=== PATIENT | female | born 1955 | race Caucasian/White ===

== ENCOUNTER 2020-04-20 17:11 | Observation (INO) | payer MEDICARE ==
--- NOTE | 2020-04-20 17:16 | ERPHSYRPT ---
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 In addition, she has had a fever as high as 102 F. It is been intermittent since Tuesday prior to this evaluation. Patient has no known exposure to COVID-19 positive individuals. She had a negative COVID-19 test on the prior to this evaluation. Her symptoms have not improved. She has not taken Tylenol in the last 2 days. She did take Aleve at 3:00 prior to arrival this afternoon. She denies chest pain. (FAHAD NGUYEN) Allergies/Adverse Reactions: Penicillins Allergy (Verified 04/20/20 17:41) Home Medications: Amitriptyline HCl 1 ea DAILY 04/20/20 [History] Atenolol/Chlorthalidone [Atenolol-Chlorthalidone 50-25] 1 ea DAILY 04/20/20 [History] Atorvastatin Calcium 1 ea DAILY 04/20/20 [History] Celecoxib [Celebrex] 1 ea DAILY 04/20/20 [History] Fluoxetine HCl 1 ea DAILY 04/20/20 [History] Metformin HCl 500 mg [Glucophage 500 MG] 1 ea DAILY 04/20/20 [History] Tramadol HCl 50 mg [Ultram 50 mg] 1 ea QID 04/20/20 [History] Travel Risk - International Travel Have you traveled outside of the country in past 3 weeks: No - Coronavirus Screening Are you exhibiting any of the following symptoms?: No Close contact with a COVID-19 positive Pt in past 14-21 Days: No <FAHAD NGUYEN - Last Filed: 04/20/20 19:09> - Review of Systems Constitutional: Fever, Chills, Weakness Eyes: No Symptoms Ears, Nose, & Throat: Throat Pain (Mild sore throat) Respiratory: No Symptoms Cardiac: No Symptoms Abdominal/Gastrointestinal: Nausea, Vomiting, No Abdominal Pain, No Diarrhea Genitourinary Symptoms: No Symptoms Musculoskeletal: No Symptoms Skin: No Symptoms Neurological: No Symptoms Psychological: No Symptoms Endocrine: No Symptoms Hematologic/Lymphatic: No Symptoms Immunological/Allergic: No Symptoms All Other Systems: Reviewed and Negative <FAHAD NGUYEN - Last Filed: 04/20/20 19:09> - Past Medical History Pertinent Past Medical History: Yes Neurological History: No Pertinent History ENT History: No Pertinent History Cardiac History: No Pertinent History Respiratory History: No Pertinent History Endocrine Medical History: Diabetes Type II Musculoskeletal History: No Pertinent History GI Medical History: No Pertinent History History: No Pertinent History Psycho-Social History: No Pertinent History Female Reproductive Disorders: No Pertinent History - Past Surgical History Past Surgical History: Yes <FAHAD NGUYEN - Last Filed: 04/20/20 19:09> - Physical Exam General Appearance: mild distress, alert, anxiety Eye Exam: PERRL/EOMI, eyes nml inspection ENT Exam: normal ENT inspection, no apparent trauma, hearing grossly normal, pharyngeal erythema (Mild) Neck Exam: normal inspection, non-tender, supple, full range of motion, trachea midline Respiratory Exam: normal breath sounds, lungs clear, no respiratory distress, no accessory muscle use, No chest non-tender, No decreased breath sounds, No respiratory distress Cardiovascular/Chest Exam: normal heart sounds, regular rate/rhythm Gastrointestinal/Abdominal Exam: soft, non tender, no distention, no mass, no guarding, no ecchymosis, no organomegaly, no pulsatile mass, normal bowel sounds, No rebound, No tenderness Pelvic Exam: not done Rectal Exam: not done Extremity Exam: non-tender, normal range of motion, normal inspection Neurologic Exam: alert, oriented x 3, cooperative, 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 as tested, normal mood/affect, nml cerebellar function, nml station & gait, sensation nml Skin Exam: normal color, warm, dry Lymphatic: No adenopathy SpO2 Interpretation: normal O2 Delivery: Room Air <FAHAD NGUYEN - Last Filed: 04/20/20 19:09> - Nursing Vital Signs Nursing Vital Signs: Initial Vital Signs Temperature 98.2 F 04/20/20 17:31 Pulse Rate 98 H 04/20/20 17:31 Respiratory Rate 16 04/20/20 17:31 Blood Pressure 124/72 04/20/20 17:31 O2 Sat by Pulse Oximetry 98 04/20/20 17:31 Pain Scale Pain Intensity 3 - Course Nursing assessment & vital signs reviewed: Yes <FAHAD NGUYEN - Last Filed: 04/20/20 19:09> Ordered Tests: Active Orders 24 hr Category Date Time Status Bedrest with BRP/BSC ROUTINE Activity 04/20/20 22:40 Active Up With Assistance ROUTINE Activity 04/20/20 22:40 Active Biological Photographer STAT Care 04/20/20 17:38 Completed Code Status Order ROUTINE Care 04/20/20 22:40 Active Fall Protocol ROUTINE Care 04/20/20 22:40 Active IV Care Q6H Care 04/20/20 22:40 Active IV Insertion STAT Care 04/20/20 17:38 Completed POCT Glucose Check ACHS Care 04/20/20 22:[address] in Observation ROUTINE Care 04/20/20 22:40 Active Pulse Oximetry (ED) STAT Care 04/20/20 17:38 Completed Kentrell Alexander ROUTINE Care 04/20/20 22:40 Active Weight,Daily 0600 Care 04/20/20 22:40 Active Consistent Carbohydrate Diet 1800 Calorie Diet 04/20/20 Breakfast Active ABDOMEN AND PELVIS W/0 CONTRAS [CT] Stat Exams 04/20/20 19:25 Taken CHEST 1 VIEW (PORTABLE) Stat Exams 04/20/20 18:51 Taken BLOOD CULTURE Stat Lab 04/20/20 18:09 Received CBC W DIFF AM.LAB Lab 04/21/20 04:00 Ordered CBC W DIFF Stat Lab 04/20/20 18:00 Completed CMP AM.LAB Lab 04/21/20 04:00 Ordered CMP Stat Lab 04/20/20 18:00 Completed CULTURE,URINE Stat Lab 04/20/20 17:49 Received Ellis Screen Stat Lab 04/20/20 18:00 Completed UA W/RFX UR CULTURE Stat Lab 04/20/20 17:49 Completed Transfer Order Routine Transfer 04/20/20 Completed Medication Summary Generic Name Dose Route Start Last Admin Trade Name Lion PRN Reason Stop Dose Admin Acetaminophen 650 mg 04/20/20 22:40 Tylenol 325 Mg PO 05/20/20 22:39 Q4H PRN PRN PAIN AND/OR FEVER Famotidine 20 mg 04/20/20 22:40 Pepcid 20 Mg Vial IV 05/20/20 22:39 Q12HT PADMINI Levofloxacin/Dextrose 500 mg in 100 mls @ 100 mls/hr 04/21/20 10:00 Levofloxacin 500mg/100ml D5w IV 05/21/20 09:59 Q24H10 PADMINI Insulin Human Lispro 0 unit 04/20/20 22:40 Humalog SQ 05/20/20 22:39 UD PRN HYPERGLYCEMIA Morphine Sulfate 2 mg 04/20/20 22:40 Morphine Sulfate 2 Mg Inj IV 04/25/20 22:39 Q4H PRN PRN PAIN Ondansetron HCl 4 mg 04/20/20 22:40 Zofran 4 Mg/2 Ml Vial IV 05/20/20 22:39 Q6H PRN PRN NAUSEA/VOMITING Discontinued Medications Generic Name Dose Route Start Last Admin Trade Name Lion PRN Reason Stop Dose Admin Acetaminophen 650 mg 04/20/20 17:38 04/20/20 18:05 Tylenol 325 Mg PO 04/20/20 17:39 650 mg STAT STA Administration Acetaminophen Confirm 04/20/20 17:59 Tylenol 325 Mg Administered 04/20/20 18:00 Dose 650 mg .ROUTE .STK-MED ONE Sodium Chloride 1,000 mls @ 999 mls/hr 04/20/20 17:38 04/20/20 19:37 Sodium Chloride 0.9% 1000 Ml IV 04/20/20 18:38 Infused .Q1H1M STA Infusion Sodium Chloride Confirm 04/20/20 17:59 Sodium Chloride 0.9% 1000 Ml Administered 04/20/20 18:00 Dose 1,000 mls @ ud .ROUTE .STK-MED ONE Levofloxacin/Dextrose 750 mg in 150 mls @ 100 mls/hr 04/20/20 19:45 04/20/20 21:51 Levofloxacin 750mg/150ml D5w IV 04/20/20 21:14 Infused STAT STA Infusion Levofloxacin/Dextrose Confirm 04/20/20 19:50 Levofloxacin 750mg/150ml D5w Administered 04/20/20 19:51 Dose 750 mg in 150 mls @ ud IV .STK-MED ONE Ketorolac Tromethamine 30 mg 04/20/20 19:56 04/20/20 19:59 Toradol 30 Mg Injection IV 04/20/20 19:57 30 mg STAT ONE Administration Ketorolac Tromethamine Confirm 04/20/20 19:58 Toradol 30 Mg Injection Administered 04/20/20 19:59 Dose 30 mg .ROUTE .STK-MED ONE Ondansetron HCl 4 mg 04/20/20 17:38 04/20/20 18:05 Zofran 4 Mg/2 Ml Vial IV 04/20/20 17:39 4 mg STAT STA Administration Ondansetron HCl Confirm 04/20/20 17:59 Zofran 4 Mg/2 Ml Vial Administered 04/20/20 18:00 Dose 4 mg .ROUTE .STK-MED ONE Potassium Bicarbonate 50 meq 04/20/20 19:52 04/20/20 19:55 K-Lyte 25 Meq PO 04/20/20 19:53 50 meq STAT ONE Administration Potassium Bicarbonate Confirm 04/20/20 19:53 K-Lyte 25 Meq Administered 04/20/20 19:54 Dose 50 meq .ROUTE .STK-MED ONE Lab/Rad Data: Laboratory Result Diagrams 04/20/20 18:00 04/20/20 18:00 Laboratory Results 04/20/20 04/20/20 04/20/20 Range/Units 20:15 18:09 18:09 WBC (4.0-10.5) K/mm3 RBC (4.1-5.4) M/mm3 Hgb (12.0-16.0) gm/dl Hct (35-47) % MCV (78-100) fl MCH (26-32) pg MCHC (32-36) g/dl RDW (11.5-14.0) % Plt Count (150-450) K/mm3 MPV (7.5-11.0) fl Gran % (36.0-66.0) % Eos # (Auto) (0-0.5) Absolute Lymphs (auto) (1.0-4.6) Absolute Monos (auto) (0.0-1.3) Lymphocytes % (24.0-44.0) % Monocytes % (0.0-12.0) % Eosinophils % (0.00-5.0) % Basophils % (0.0-0.4) % Absolute Granulocytes (1.4-6.9) Basophils # (0-0.4) Sodium (137-145) mmol/L Potassium (3.5-5.1) mmol/L Chloride (98-107) mmol/L Carbon Dioxide (22-30) mmol/L Anion Gap (5-15) MEQ/L BUN (7-17) mg/dL Creatinine (0.52-1.04) mg/dL Estimated GFR ML/MIN Glucose (74-106) mg/dL Calcium (8.4-10.2) mg/dL Total Bilirubin (0.2-1.3) mg/dL AST (14-36) U/L ALT (0-35) U/L Alkaline Phosphatase (38-126) U/L Serum Total Protein (6.3-8.2) g/dL Albumin (3.5-5.0) g/dL Urine Color (YELLOW) Urine Appearance (CLEAR) Urine pH (5-6) Ur Specific [place] (1.005-1.025) Urine Protein (Negative) Urine Ketones (NEGATIVE) Urine Blood (0-5) Kevin/ul Urine Nitrite (NEGATIVE) Urine Bilirubin (NEGATIVE) Urine Urobilinogen (0-1) mg/dL Ur Leukocyte Esterase (NEGATIVE) Urine WBC (Auto) (0-5) /HPF Urine RBC (Auto) (0-2) /HPF U Epithel Cells (Auto) (FEW) /HPF Urine Bacteria (Auto) (NEGATIVE) /HPF Unidentified Crystals (NEGATIVE) /HPF Urine Mucus (Auto) (NEGATIVE) /HPF Urine Culture Reflexed (NO) Urine Glucose (NEGATIVE) mg/dL Monoscreen (Negative) Influenza Type A Ag NEGATIVE (NEGATIVE) Influenza Type B Ag NEGATIVE (NEGATIVE) RSV (PCR) NEGATIVE (Negative) SARS-CoV-2 (PCR) NEGATIVE (NEGATIVE) Group A Strep Antibody NOT DETECTED (NEGATIVE) 04/20/20 04/20/20 04/20/20 Range/Units 18:00 18:00 18:00 WBC 9.1 (4.0-10.5) K/mm3 RBC 4.09 L (4.1-5.4) M/mm3 Hgb 12.3 (12.0-16.0) gm/dl Hct 36.6 (35-47) % MCV 89.5 (78-100) fl MCH 30.1 (26-32) pg MCHC 33.6 (32-36) g/dl RDW 13.4 (11.5-14.0) % Plt Count 103 L (150-450) K/mm3 MPV 11.3 H (7.5-11.0) fl Gran % 71.1 H (36.0-66.0) % Eos # (Auto) 0.03 (0-0.5) Absolute Lymphs (auto) 1.23 (1.0-4.6) Absolute Monos (auto) 1.35 H (0.0-1.3) Lymphocytes % 13.6 L (24.0-44.0) % Monocytes % 14.9 H (0.0-12.0) % Eosinophils % 0.3 (0.00-5.0) % Basophils % 0.1 (0.0-0.4) % Absolute Granulocytes 6.43 (1.4-6.9) Basophils # 0.01 (0-0.4) Sodium 135 L (137-145) mmol/L Potassium 3.1 L (3.5-5.1) mmol/L Chloride 99 (98-107) mmol/L Carbon Dioxide 27 (22-30) mmol/L Anion Gap 12.1 (5-15) MEQ/L BUN 25 H (7-17) mg/dL Creatinine 0.64 (0.52-1.04) mg/dL Estimated GFR > 60.0 ML/MIN Glucose 149 H (74-106) mg/dL Calcium 9.3 (8.4-10.2) mg/dL Total Bilirubin 1.10 (0.2-1.3) mg/dL AST 41 H (14-36) U/L ALT 37 H (0-35) U/L Alkaline Phosphatase 265 H (38-126) U/L Serum Total Protein 7.5 (6.3-8.2) g/dL Albumin 4.0 (3.5-5.0) g/dL Urine Color (YELLOW) Urine Appearance (CLEAR) Urine pH (5-6) Ur Specific [place] (1.005-1.025) Urine Protein (Negative) Urine Ketones (NEGATIVE) Urine Blood (0-5) Kevin/ul Urine Nitrite (NEGATIVE) Urine Bilirubin (NEGATIVE) Urine Urobilinogen (0-1) mg/dL Ur Leukocyte Esterase (NEGATIVE) Urine WBC (Auto) (0-5) /HPF Urine RBC (Auto) (0-2) /HPF U Epithel Cells (Auto) (FEW) /HPF Urine Bacteria (Auto) (NEGATIVE) /HPF Unidentified Crystals (NEGATIVE) /HPF Urine Mucus (Auto) (NEGATIVE) /HPF Urine Culture Reflexed (NO) Urine Glucose (NEGATIVE) mg/dL Monoscreen NEGATIVE (Negative) Influenza Type A Ag (NEGATIVE) Influenza Type B Ag (NEGATIVE) RSV (PCR) (Negative) SARS-CoV-2 (PCR) (NEGATIVE) Group A Strep Antibody (NEGATIVE) 04/20/20 Range/Units 17:49 WBC (4.0-10.5) K/mm3 RBC (4.1-5.4) M/mm3 Hgb (12.0-16.0) gm/dl Hct (35-47) % MCV (78-100) fl MCH (26-32) pg MCHC (32-36) g/dl RDW (11.5-14.0) % Plt Count (150-450) K/mm3 MPV (7.5-11.0) fl Gran % (36.0-66.0) % Eos # (Auto) (0-0.5) Absolute Lymphs (auto) (1.0-4.6) Absolute Monos (auto) (0.0-1.3) Lymphocytes % (24.0-44.0) % Monocytes % (0.0-12.0) % Eosinophils % (0.00-5.0) % Basophils % (0.0-0.4) % Absolute Granulocytes (1.4-6.9) Basophils # (0-0.4) Sodium (137-145) mmol/L Potassium (3.5-5.1) mmol/L Chloride (98-107) mmol/L Carbon Dioxide (22-30) mmol/L Anion Gap (5-15) MEQ/L BUN (7-17) mg/dL Creatinine (0.52-1.04) mg/dL Estimated GFR ML/MIN Glucose (74-106) mg/dL Calcium (8.4-10.2) mg/dL Total Bilirubin (0.2-1.3) mg/dL AST (14-36) U/L ALT (0-35) U/L Alkaline Phosphatase (38-126) U/L Serum Total Protein (6.3-8.2) g/dL Albumin (3.5-5.0) g/dL Urine Color YELLOW (YELLOW) Urine Appearance SLIGHTLY CLOUDY (CLEAR) Urine pH 5.0 (5-6) Ur Specific [place] 1.018 (1.005-1.025) Urine Protein 30 (Negative) Urine Ketones NEGATIVE (NEGATIVE) Urine Blood MODERATE (0-5) Kevin/ul Urine Nitrite NEGATIVE (NEGATIVE) Urine Bilirubin NEGATIVE (NEGATIVE) Urine Urobilinogen NEGATIVE (0-1) mg/dL Ur Leukocyte Esterase LARGE (NEGATIVE) Urine WBC (Auto) 26-50 (0-5) /HPF Urine RBC (Auto) 16-25 (0-2) /HPF U Epithel Cells (Auto) RARE (FEW) /HPF Urine Bacteria (Auto) MODERATE (NEGATIVE) /HPF Unidentified Crystals 2-5 (NEGATIVE) /HPF Urine Mucus (Auto) SLIGHT (NEGATIVE) /HPF Urine Culture Reflexed YES (NO) Urine Glucose NEGATIVE (NEGATIVE) mg/dL Monoscreen (Negative) Influenza Type A Ag (NEGATIVE) Influenza Type B Ag (NEGATIVE) RSV (PCR) (Negative) SARS-CoV-2 (PCR) (NEGATIVE) Group A Strep Antibody (NEGATIVE) - Progress Counseled pt/family regarding: lab results, diagnosis, need for follow-up, rad results <FAHAD NGUYEN - Last Filed: 04/20/20 19:09> - Progress Will see patient in: hospital (observation) <ANCELMO DUNLAP - Last Filed: 04/20/20 23:14> - Progress Progress Note: 04/20/20 19:[address] dunlap. i reviewed pt hx, condition, pending labs and xray studies. he accepts care of pt. (FAHAD NGUYEN) 11/01/20 20:12 I resumed care at shift change from Dr. Nguyen with pending CT results. Patient presented with fever chills with some flank pain. She had a COVID-19 testing done 3 days ago which was negative. She has a normal white count, negative CT for any acute pyelonephritis or any other acute findings but urinalysis is consistent with remarkable UTI which could be the reason for her fever and she is developing pyelonephritis although CT is not showing it at present. She is started on Levaquin. I would obtain COVID-19 testing again here in the ER. I have discussed with Dr. Hector and patient is being admitted to regular floor if COVID-19 testing is negative. Plan discussed with patient who understand and agrees with it. (ANCELMO DUNLAP) - Departure Departure Disposition: Observation Critical Care Time: No <FAHAD NGUYEN - Last Filed: 04/20/20 19:09> - Departure Departure Disposition: Observation <ANCELMO DUNLAP - Last Filed: 04/20/20 23:14> - Departure Clinical Impression: Weakness, Acute UTI, Hypokalemia Fever Qualifiers: Fever type: unspecified Qualified Code(s): R50.9 - Fever, unspecified Condition: Stable
[2020-04-20] MEDS ORDERED: TYLENOL 325 MG PO STA (17:38)
[2020-04-20] MEDS ORDERED: Sodium Chloride 0.9% 1000 ML 1,000 ML IV STA (17:38)
[2020-04-20] MEDS ORDERED: Zofran 4 MG/2 ML VIAL IV STA (17:38)
[2020-04-20] MEDS ORDERED: TYLENOL 325 MG ONE (17:59)
[2020-04-20] MEDS ORDERED: Zofran 4 MG/2 ML VIAL ONE (17:59)
[2020-04-20] MEDS ORDERED: Sodium Chloride 0.9% 1000 ML 1,000 ML ONE (17:59)
[2020-04-20 18:14] LABS: Absolute Neutrophil Ct (ANC) 6.43 (1.4-6.9); BASOPHIL % 0.1 % (0.0-0.4); Basophil (Absolute #) 0.01 (0-0.4); Eosinophil % 0.3 % (0.00-5.0); Eosinophil (Absolute #) 0.03 (0-0.5); Hematocrit 36.6 % (35-47); Hemoglobin 12.3 gm/dl (12.0-16.0); Lymphocyte (Absolute #) 1.23 (1.0-4.6); Lymphocytes % 13.6 % (24.0-44.0); Mean Cell Volume 89.5 fl (78-100); Mean Corpuscular Hemoglobin 30.1 pg (26-32); Mean Corpuscular Hgb Concent. 33.6 g/dl (32-36); Mean Platelet Volume 11.3 fl (7.5-11.0); Monocyte (Absolute #) 1.35 (0.0-1.3); Monocytes % 14.9 % (0.0-12.0); Neutrophil % 71.1 % (36.0-66.0); Platelet Count 103 K/mm3 (150-450); Red Blood Count 4.09 M/mm3 (4.1-5.4); Red Cell Distribution Width 13.4 % (11.5-14.0); White Blood Count 9.1 K/mm3 (4.0-10.5)
[2020-04-20 18:32] LABS: Appearance SLIGHTLY CLOUDY (CLEAR); Bacteria MODERATE /HPF (NEGATIVE); Bilirubin NEGATIVE (NEGATIVE); Blood MODERATE Ery/ul (0-5); Epithelial Cells RARE /HPF (FEW); Glucose NEGATIVE (NEGATIVE); Ketones NEGATIVE (NEGATIVE); Leukocyte Esterase LARGE (NEGATIVE); Mucus SLIGHT /HPF (NEGATIVE); Nitrite NEGATIVE (NEGATIVE); Protein,Urine Dip 30 (Negative); Specific Gravity 1.018 (1.005-1.025); Urobilinogen NEGATIVE mg/dL (0-1); WBC 26-50 /HPF (0-5)
[2020-04-20 18:32] LABS: ALKALINE PHOSPHATASE 265 U/L (38-126); ANION GAP 12.1 MEQ/L (5-15); BLOOD UREA NITROGEN 25 mg/dL (7-17); CHLORIDE 99 mmol/L (98-107); Calcium 9.3 mg/dL (8.4-10.2); Carbon Dioxide 27 mmol/L (22-30); Creatinine 1 0.64 mg/dL (0.52-1.04); EST GLOMERULAR FILTRATION RATE > 60.0 ML/MIN; Glucose 149 mg/dL (74-106); Potassium 3.1 mmol/L (3.5-5.1); SGOT/AST 41 U/L (14-36); SGPT/ALT 37 U/L (0-35); SODIUM 135 mmol/L (137-145); Total Protein 7.5 g/dL (6.3-8.2)
[2020-04-20 18:47] LABS: INFLUENZA A NEGATIVE (NEGATIVE); INFLUENZA B NEGATIVE (NEGATIVE); RESPIRATORY SYNCTIAL VIRUS NEGATIVE (Negative)
[2020-04-20] MEDS ORDERED: LEVOFLOXACIN 750MG/150ML D5W 750 MG/150 ML BAG IV STA (19:45)
[2020-04-20] MEDS ORDERED: LEVOFLOXACIN 750MG/150ML D5W 750 MG/150 ML BAG IV ONE (19:50)
[2020-04-20] MEDS ORDERED: K-LYTE 25 MEQ PO ONE (19:52)
[2020-04-20] MEDS ORDERED: K-LYTE 25 MEQ ONE (19:53)
[2020-04-20] MEDS ORDERED: TORAdol 30 mg Injection IV ONE (19:56)
[2020-04-20] MEDS ORDERED: TORAdol 30 mg Injection ONE (19:58)
[2020-04-20] MEDS ORDERED: Zofran 4 MG/2 ML VIAL IV PRN (22:40)
[2020-04-20] MEDS ORDERED: HUMALOG SQ PRN (22:40)
[2020-04-20] MEDS ORDERED: FLUZONE HIGH-DOSE QUAD 2020-21 IM ONE (23:00)
[2020-04-21] MEDS: MORPHINE SULFATE 2 MG INJ IV PRN ×2 (00:13→16:26)
[2020-04-21] MEDS: Pepcid 20 MG VIAL IV SCH ×3 (00:24→21:10)
[2020-04-21] MEDS: TYLENOL 325 MG PO PRN ×2 (03:21→20:03)
[2020-04-21 05:05] LABS: Absolute Neutrophil Ct (ANC) 4.51 (1.4-6.9); BASOPHIL % 0.1 % (0.0-0.4); Basophil (Absolute #) 0.01 (0-0.4); Eosinophil % 0.6 % (0.00-5.0); Eosinophil (Absolute #) 0.04 (0-0.5); Hemoglobin 10.8 gm/dl (12.0-16.0); Lymphocyte (Absolute #) 1.39 (1.0-4.6); Lymphocytes % 19.7 % (24.0-44.0); Mean Cell Volume 91.2 fl (78-100); Mean Corpuscular Hemoglobin 29.8 pg (26-32); Mean Corpuscular Hgb Concent. 32.7 g/dl (32-36); Mean Platelet Volume 11.4 fl (7.5-11.0); Monocyte (Absolute #) 1.12 (0.0-1.3); Monocytes % 15.8 % (0.0-12.0); Neutrophil % 63.8 % (36.0-66.0); Platelet Count 94 K/mm3 (150-450); Red Blood Count 3.62 M/mm3 (4.1-5.4); Red Cell Distribution Width 13.6 % (11.5-14.0); White Blood Count 7.1 K/mm3 (4.0-10.5)
[2020-04-21 05:26] LABS: ALBUMIN 3.5 g/dL (3.5-5.0); ALKALINE PHOSPHATASE 202 U/L (38-126); ANION GAP 8.1 MEQ/L (5-15); BLOOD UREA NITROGEN 24 mg/dL (7-17); CHLORIDE 100 mmol/L (98-107); Calcium 8.6 mg/dL (8.4-10.2); Carbon Dioxide 30 mmol/L (22-30); Creatinine 1 0.71 mg/dL (0.52-1.04); EST GLOMERULAR FILTRATION RATE > 60.0 ML/MIN; Glucose 124 mg/dL (74-106); Potassium 3.6 mmol/L (3.5-5.1); SGOT/AST 34 U/L (14-36); SGPT/ALT 32 U/L (0-35); SODIUM 135 mmol/L (137-145); Total Protein 6.6 g/dL (6.3-8.2)
[2020-04-21 05:59] LABS: Slide Review 1 YES
--- NOTE | 2020-04-21 08:52 | XRAY ---
Indication: Abdomen pain and hematuria. Multiple contiguous axial images obtained through the abdomen and pelvis without contrast as ordered. Comparison: None Lung bases are clear of infiltrate and effusion. Heart is not enlarged. Noncontrasted stomach and bowel loops appear nonobstructed. Normal appendix. Previous cholecystectomy and hysterectomy. Fatty hepatomegaly measuring 24.5 cm and splenomegaly measuring 18.5 cm. No free fluid/air. Remaining pancreas, adrenal glands, kidneys, ureters, and bladder are unremarkable for noncontrast exam. Mild scattered aortoiliac calcifications without AAA. Osseous structures intact with mild degenerative spondylosis throughout the spine including 4-5 mm L4 spondylolisthesis. Impression: 1. Fatty hepatomegaly, splenomegaly, and chronic bony findings. 2. Remaining CT abdomen/pelvis without contrast exam is negative. Comment: Preliminary interpretation was made by [facility]. No critical discrepancy.
--- NOTE | 2020-04-21 08:54 | XRAY ---
Indication: Fever, cough, and sore throat. Comparison: None Portable chest demonstrates normal heart and lungs. Bony thorax intact with minimal degenerative changes.
[2020-04-21] MEDS: SODIUM CHLORIDE 0.45% W/ 20 mEq KCL 1,000 ML IV SCH ×2 (09:24→23:44)
[2020-04-21] MEDS ORDERED: Glucophage 500 MG PO SCH ×2 (10:00→22:00)
[2020-04-21] MEDS ORDERED: NON-FORMULARY ITEM PO SCH (10:00)
[2020-04-21] MEDS ORDERED: celeBREX 100 MG PO SCH (10:00)
[2020-04-21] MEDS ORDERED: CHLORTHALIDONE PO SCH (10:00)
[2020-04-21] MEDS ORDERED: ATENOLOL PO SCH (10:00)
[2020-04-21] MEDS ORDERED: PROZAC 10 MG PO SCH (10:00)
[2020-04-21] MEDS ORDERED: ATORVASTATIN CALCIUM PO SCH (10:00)
[2020-04-21] MEDS ORDERED: ELAVIL 10 MG PO SCH ×2 (10:00→22:00)
[2020-04-21] MEDS ORDERED: FLUZONE HIGH-DOSE QUAD 2020-21 IM ONE (10:00)
[2020-04-21] MEDS ORDERED: CELECOXIB PO SCH (10:00)
[2020-04-21] MEDS: ULTRAM 50 MG PO SCH ×2 (10:24→12:08)
[2020-04-21] MEDS ORDERED: ULTRAM 50 MG PO PRN (15:21)
[2020-04-21] MEDS ORDERED: ZOCOR 20MG PO SCH (22:00)
[2020-04-21] MEDS ORDERED: Levofloxacin 500MG/100ML D5W 500 MG/100 ML BAG IV SCH (22:00)
[2020-04-22] MEDS: MORPHINE SULFATE 2 MG INJ IV PRN (04:06)
[2020-04-22 04:20] VITALS: PULSE 71
[2020-04-22 04:49] LABS: BASOPHIL % 0.4 % (0.0-0.4); Basophil (Absolute #) 0.02 (0-0.4); Eosinophil % 1.8 % (0.00-5.0); Hematocrit 32.8 % (35-47); Hemoglobin 10.6 gm/dl (12.0-16.0); Lymphocyte (Absolute #) 1.67 (1.0-4.6); Lymphocytes % 29.3 % (24.0-44.0); Mean Cell Volume 92.1 fl (78-100); Mean Corpuscular Hemoglobin 29.8 pg (26-32); Mean Corpuscular Hgb Concent. 32.3 g/dl (32-36); Monocyte (Absolute #) 0.71 (0.0-1.3); Monocytes % 12.5 % (0.0-12.0); Platelet Count 101 K/mm3 (150-450); Red Blood Count 3.56 M/mm3 (4.1-5.4); Red Cell Distribution Width 13.5 % (11.5-14.0); White Blood Count 5.7 K/mm3 (4.0-10.5)
[2020-04-22 05:08] LABS: ALBUMIN 3.3 g/dL (3.5-5.0); ALKALINE PHOSPHATASE 191 U/L (38-126); ANION GAP 8.3 MEQ/L (5-15); BLOOD UREA NITROGEN 18 mg/dL (7-17); CHLORIDE 103 mmol/L (98-107); Calcium 8.4 mg/dL (8.4-10.2); Carbon Dioxide 28 mmol/L (22-30); Creatinine 1 0.68 mg/dL (0.52-1.04); EST GLOMERULAR FILTRATION RATE > 60.0 ML/MIN; Glucose 104 mg/dL (74-106); Potassium 3.7 mmol/L (3.5-5.1); SGOT/AST 30 U/L (14-36); SGPT/ALT 27 U/L (0-35); SODIUM 135 mmol/L (137-145); Total Protein 6.5 g/dL (6.3-8.2)
[2020-04-22 07:24] VITALS: BP 106/51; O2SAT 97
--- NOTE | 2020-04-22 07:59 | HP ---
CHIEF COMPLAINT: Fever, chills, sweats, rigors. HISTORY OF PRESENT ILLNESS: The patient is a 64 year old white female who reported she had come home from work the other day feeling bad thinking it was an attack of fibromyalgia. She went to bed and woke up having shaking chills. She noted fever two different times one as high as 102F. She presented to the emergency room for further evaluation and management. Her regular doctor is in [place] but she did not wish to go that way due to her concerns of COVID and bad experiences with family members and friends have had in those facilities. The patient also reports a fairly recent colonoscopy after which it sounds like polyps were removed and she apparently had some bleeding thereafter this was about three weeks ago and she has an appointment to see her GI specialist for some possible cirrhosis issues actually tomorrow. PAST MEDICAL/SURGICAL HISTORY: Fibromyalgia, diabetes mellitus type II, hyperlipidemia. HOME MEDICATIONS: Includes amitriptyline, Atenolol/Chlorthalidone 50/25 daily, Atorvastatin daily, Celebrex daily, fluoxetine daily, Metformin 500 mg twice a day, tramadol four times a day PRN pain. ALLERGIES: PENICILLINS. PHYSICAL EXAMINATION: The patient's vital signs on admission showed temperature 98.2F, pulse 98, respiratory rate 16 and blood pressure 124/72. O2 saturation 98%. HEENT: Normocephalic, atraumatic. Pupils equal round reactive to light. Extraocular movements intact. Oropharynx is pink and moist. NECK: Supple without lymphadenopathy, thyromegaly or JVD. CHEST: Clear to auscultation. HEART: Regular rate and rhythm. ABDOMEN: Soft but somewhat tender in the right side particularly to percussion. EXTREMITIES: Without cyanosis, clubbing or edema. NEUROLOGIC: The patient is alert and oriented x3. No focal deficits were noted. LAB DATA AND TESTS: Laboratory studies from the emergency room showed a white count of 9,100, hemoglobin 12.3, PLT count somewhat low at 103,000. [place] screen was negative. Laboratory tests and influenza evaluations were negative. UA showed specific gravity 1.018 and 25-50 white blood cells per high power field and 16-25 red blood cells. Her sugar was 149, BUN 25, creatinine 0.64, potassium slightly low at 3.1. Liver enzymes mildly elevated with an AST 41, ALT 37. Alkaline phosphatase elevated at 265. Group A Strep was negative. RSV was negative. The urine culture is already growing gram-negative, ID and sensitivity currently pending. CT scan revealed no evidence of pyelonephritis and essentially otherwise negative preliminarily. ASSESSMENT: A patient with probable urinary tract infection, possible pyelonephritis. Cultures were obtained from urine and blood. She has been started on IV Levaquin. We will flush her kidneys with IV fluids of half normal saline plus 20 mEq potassium. We will continue the patient's home medications. She does have a follow up otherwise at a GI specialist office as early as tomorrow. We will have her reschedule this to make sure that she will be make the appointment.
[2020-04-22] MEDS ORDERED: FLUZONE HIGH-DOSE QUAD 2020-21 IM ONE (10:00)
[2020-04-22] MEDS ORDERED: TENORMIN 50 MG PO SCH (10:00)
--- NOTE | 2020-04-23 10:04 | DS ---
DISCHARGE DIAGNOSES: 1) ESCHERICHIA COLI URINARY TRACT INFECTION. 2) PROBABLE PYELONEPHRITIS. HOSPITAL COURSE: The patient is 64 year old white female who presented to the emergency room after having rigors and fever up to 102F the night prior to admission. The patient was seen in the emergency room. CT scans revealed fatty hepatomegaly, splenomegaly and chronic bone findings but CT scan of the abdomen and pelvis was otherwise essentially unremarkable. Specifically, there was no note of pyelonephritis there although on physical examination had CVA tenderness particularly on the right side but was pretty much tender all over. The patient after admission was given IV fluids and IV Levaquin. The urine culture did come back positive for Escherichia coli and was sensitive to all antibiotics tested but the patient really did receive IV Levaquin so we felt that she could be on oral Levaquin at home. The patient was feeling better and wished to go home although she was still having some right flank pain. We suggested that she stay another day but was really insistent on returning home. The patient was therefore discharged home on Levaquin 500 mg p.o. for additional seven days. She was instructed to follow up with her primary care provider (PCP) within the next week. The patient verbalized her understanding and was also instructed to call if she had any need for us in the future particularly if things should get worse instead of better for her then she could see her PCP.
== END 2020-04-22 08:25 | disposition home or self-care (01) ==
LOC: ED 17:11 → MED SURG 22:34
PROVIDERS: ADMIT Family Medicine; ATTEND Family Medicine
DX: N39.0 Urinary tract infection, site not specified (principal); B96.20 Unspecified Escherichia coli [E. coli] as the cause of diseases classified elsewhere; R16.2 Hepatomegaly with splenomegaly, not elsewhere classified; E11.9 Type 2 diabetes mellitus without complications; E78.5 Hyperlipidemia, unspecified; M79.7 Fibromyalgia; Z79.899 Other long term (current) drug therapy
CPT/HCPCS: 36000; 36415; 71045; 74176; 80053; 81001; 82947; 83036; 85025; 86308; 87040; 87077; 87086; 87186; 87631; 87651; 93041; 94760; 96360; 96361; 96365; 96374; 96375; 99285; G0008; G0378; U0003; 90662; J1885; J1956; J2270; J2405; A9270-GY

== ENCOUNTER 2022-01-25 18:33 | Inpatient (IN) | payer MEDICARE ==
[2022-01-25] MEDS ORDERED: Sodium Chloride 0.9% 1000 ML 1,000 ML IV STA ×2 (20:31→22:57)
[2022-01-25] MEDS ORDERED: Zofran 4 MG/2 ML VIAL IV ONE (20:34)
[2022-01-25] MEDS ORDERED: Zofran 4 MG/2 ML VIAL ONE (20:38)
[2022-01-25] MEDS ORDERED: Sodium Chloride 0.9% 1000 ML 1,000 ML ONE ×2 (20:38→23:31)
[2022-01-25 20:49] LABS: Epithelial Cells RARE /HPF (FEW); Mucus SLIGHT /HPF (NEGATIVE); RBC 0-2 /HPF (0-2); WBC 0-2 /HPF (0-5)
[2022-01-25 20:51] LABS: Appearance CLEAR (CLEAR); Bilirubin NEGATIVE (NEGATIVE); Glucose NEGATIVE (NEGATIVE); Ketones TRACE (NEGATIVE); Nitrite NEGATIVE (NEGATIVE); Protein,Urine Dip NEGATIVE (Negative); RBC NEGATIVE Ery/ul (0-5); Specific Gravity 1.025 (1.005-1.025); Urobilinogen 0.2 mg/dL (0-1)
[2022-01-25 20:52] LABS: Dipstick done @ ? MAIN LAB; Urine Cultured Indicated? NO
[2022-01-25 21:02] LABS: Absolute Neutrophil Ct (ANC) 5.79 x10^3/uL (1.4-6.9); Basophil (Absolute #) 0.03 x10^3/uL (0-0.4); Eosinophil % 1.5 % (0.00-5.0); Eosinophil (Absolute #) 0.13 x10^3/uL (0-0.5); Hematocrit 34.5 % (35-47); Hemoglobin 11.4 g/dL (12.0-16.0); Lymphocyte (Absolute #) 1.77 x10^3/uL (1.0-4.6); Lymphocytes % 20.8 % (24.0-44.0); Mean Cell Volume 88.2 fL (78-100); Mean Corpuscular Hemoglobin 29.2 pg (26-32); Mean Platelet Volume 10.7 fL (7.5-11.0); Monocyte (Absolute #) 0.73 x10^3/uL (0.0-1.3); Monocytes % 8.6 % (0.0-12.0); Neutrophil % 68.2 % (36.0-66.0); Platelet Count 157 x10^3/uL (150-450); Red Blood Count 3.91 x10^6/uL (4.1-5.4); Red Cell Distribution Width 14.7 % (11.5-14.0); White Blood Count 8.5 x10^3/uL (4.0-10.5)
[2022-01-25 21:17] LABS: ALBUMIN 3.6 g/dL (3.5-5.0); ALKALINE PHOSPHATASE 192 U/L (38-126); ANION GAP 10.8 MEQ/L (5-15); BLOOD UREA NITROGEN 29 mg/dL (7-17); CHLORIDE 106 mmol/L (98-107); Calcium 10.9 mg/dL (8.4-10.2); Carbon Dioxide 26 mmol/L (22-30); EST GLOMERULAR FILTRATION RATE > 60.0 ML/MIN; Glucose 187 mg/dL (74-106); Potassium 3.6 mmol/L (3.5-5.1); SGOT/AST 49 U/L (14-36); SGPT/ALT 55 U/L (0-35); SODIUM 139 mmol/L (137-145); Total Protein 6.7 g/dL (6.3-8.2)
--- NOTE | 2022-01-25 22:58 | ERPHSYRPT ---
- History of Present Illness Source: patient Exam Limitations: other (Poor historian) Patient Subjective Stated Complaint: pt c/o nausea and weakness Triage Nursing Assessment: pt tested positive for covid on 01/14/22. Pt c/o cough, fever, sob, sweating, chilling, weakness, headache, abd pain and rt side pain. Pt states, "we feel better for a couple days and then bad again for a couple days". Pt vomited x1 today, hasn't been able to keep food down today. Abd soft with active bs x4 quad, nontender. LBM today. Physician History: 66 yo wf who tested + for CV19 12 days ago presents to the ER w lethargy/N/V x1day. Pt still has a mild cough and a subjective fever. She denies chest pain/dyspnea and states that her stool has been black today. Pt has mild diffuse abdominal pain which she rates a 3/10 on scale. Timing/Duration: other (1 day) Modifying Factors: Improves With: nothing Associated Symptoms: nausea, vomiting, abdominal pain Allergies/Adverse Reactions: Penicillins Allergy (Verified 01/25/22 20:14) Home Medications: Atorvastatin Calcium 20 mg PO DAILY 04/20/20 [History] Celecoxib [Celebrex] 200 mg PO DAILY 04/20/20 [History] Fluoxetine HCl 40 mg PO DAILY 04/20/20 [History] Metformin HCl 500 mg [Glucophage 500 MG] 500 mg PO 04/20/20 [History] Tramadol HCl 50 mg [Ultram 50 mg] 50 mg PO TIDPRN PRN 04/20/20 [History] Aripiprazole [Abilify] 2 mg PO HS 01/25/22 [History] Budesonide [Budesonide EC] 9 mg PO DAILY 01/25/22 [History] Potassium Chloride 20 meq PO DAILY 01/25/22 [History] Atenolol/Chlorthalidone [Tenoretic 50 Tablet] 1 each PO DAILY 01/26/22 [History] Hx Tetanus, Diphtheria Vaccination/Date Given: Yes Hx Influenza Vaccination/Date Given: Yes Hx Pneumococcal Vaccination/Date Given: Yes Immunizations Up to Date: Yes Travel Risk - International Travel Have you traveled outside of the country in past 3 weeks: No - Coronavirus Screening Are you exhibiting any of the following symptoms?: Yes Symptoms: Fever, Cough: New Onset, Shortness of Breath, Vomiting/Diarrhea, Headaches/Body Aches/Fatigue Close contact with a COVID-19 positive Pt in past 14-21 Days: Yes - Vaccine Status Have you recieved a Covid-19 vaccination: Yes Flight Control Specialist: Pfizer - Vaccination Dates Date of 2cond Vaccination (if applicable): . - Review of Systems Constitutional: No Symptoms, Fever, Chills, Fatigue, Lethargy Eyes: No Symptoms Ears, Nose, & Throat: No Symptoms Respiratory: No Symptoms, Cough Cardiac: No Symptoms Abdominal/Gastrointestinal: No Symptoms, Abdominal Pain, Nausea, Vomiting, Melena, Appetite Changes Genitourinary Symptoms: No Symptoms Musculoskeletal: No Symptoms, Myalgias Skin: No Symptoms Neurological: No Symptoms Psychological: No Symptoms Endocrine: No Symptoms Hematologic/Lymphatic: No Symptoms Immunological/Allergic: No Symptoms - Past Medical History Pertinent Past Medical History: Yes Neurological History: No Pertinent History ENT History: Cataracts Cardiac History: Hypertension Respiratory History: No Pertinent History Endocrine Medical History: Diabetes Type II, Liver Disease Musculoskeletal History: Arthritis, Fibromyalgia GI Medical History: Gallbladder Disease History: No Pertinent History Psycho-Social History: Depression Female Reproductive Disorders: No Pertinent History Other Medical History: fibro,liver disease?, - Past Surgical History Past Surgical History: Yes Neuro Surgical History: No Pertinent History Cardiac: No Pertinent History Respiratory: No Pertinent History Gastrointestinal: Cholecystectomy Musculoskeletal: Orthopedic Surgery Female Surgical History: Hysterectomy, Tubal Ligation Other Surgical History: knee, heel spur - Social History Smoking Status: Never smoker Exposure to second hand smoke: Yes Drug Use: none Patient Lives Alone: No Significant Family History: no pertinent family hx - Nursing Vital Signs Nursing Vital Signs: Initial Vital Signs Temperature 99.3 F 01/25/22 20:02 Pulse Rate 136 H 01/25/22 20:02 Respiratory Rate 20 01/25/22 20:02 Blood Pressure 152/83 01/25/22 20:02 O2 Sat by Pulse Oximetry 97 01/25/22 20:02 Pain Scale Pain Intensity 3 Hypertensive/Tachycardic - Physical Exam General Appearance: no apparent distress Eye Exam: PERRL/EOMI, eyes nml inspection Ears, Nose, Throat Exam: normal ENT inspection, TMs normal, pharynx normal, moist mucous membranes Neck Exam: normal inspection, non-tender, supple, full range of motion, No meningismus, No mass, No Brudzinski, No Kernig's Respiratory Exam: normal breath sounds, lungs clear, airway intact, No respiratory distress Cardiovascular Exam: tachycardia, capillary refill <2 sec, No murmur Gastrointestinal/Abdomen Exam: soft, normal bowel sounds, No tenderness Back Exam: normal inspection, normal range of motion, No CVA tenderness, No vertebral tenderness Extremity Exam: normal inspection, normal range of motion Neurologic Exam: alert, oriented x 3, cooperative, dehydrator II-XII nml as tested, normal mood/affect, sensation nml, No motor deficits, No sensory deficit Skin Exam: normal color, warm, dry, No rash Lymphatic Exam: No adenopathy SpO2 Interpretation: normal SpO2: 96 O2 Delivery: Room Air - Course Nursing assessment & vital signs reviewed: Yes EKG Interpreted by Me: RATE (Rate 127/Sinus tach/Prolonged QTc/NOnspecific ST- Twave changes/V6 not visualized) - CT Exams Chest CT Interpretation: Tele-radiologist Report (CT chest-No PE) Abdomen/Pelvis CT Interpretation: Tele-radiologist Report (CT cirrhosis/Bowel wall thickening) Ordered Tests: Active Orders 24 hr Category Date Time Status NPO Diet 01/26/22 04:25 Active ABDOMEN AND PELVIS W CONTRAST [CT] Stat Exams 01/26/22 00:36 Taken CHEST 1 VIEW (PORTABLE) Stat Exams 01/25/22 20:33 Taken CHEST WITH CONTRAST [CT] Stat Exams 01/26/22 00:36 Taken CBC W DIFF AM.LAB Lab 01/27/22 04:00 Ordered CBC W DIFF Stat Lab 01/25/22 20:58 Completed CMP AM.LAB Lab 01/27/22 04:00 Ordered CMP Stat Lab 01/25/22 20:58 Completed D-DIMER QUANTITATIVE Stat Lab 01/25/22 22:57 Completed Lactic Acid Stat Lab 01/25/22 20:47 Completed Occult Blood Stool [FECAL OCCULT BLOOD - SCREENING] Lab 01/26/22 Ordered Stat TROPONIN Q4H Lab 01/26/22 04:56 Received TROPONIN Q4H Lab 01/26/22 08:30 Ordered TROPONIN Q4H Lab 01/26/22 12:30 Ordered TROPONIN Stat Lab 01/25/22 20:58 Completed UA W/RFX CULTURE Stat Lab 01/25/22 20:42 Completed Respiratory Therapy Consult ROUTINE RT 01/26/22 04:23 Completed Transfer Order Routine Transfer 01/26/22 Completed Medication Summary Generic Name Dose Route Start Last Admin Trade Name Lion PRN Reason Stop Dose Admin Ondansetron HCl 4 mg 01/26/22 04:23 Ondansetron Hcl 4 Mg/2 Ml Vial IV 02/25/22 04:22 Q6H PRN PRN NAUSEA/VOMITING Pantoprazole Sodium 40 mg 01/26/22 10:00 Pantoprazole 40 Mg Vial IV 02/25/22 09:59 Q24H10 PADMINI Discontinued Medications Generic Name Dose Route Start Last Admin Trade Name Lion PRN Reason Stop Dose Admin Dexamethasone Sodium Phosphate 10 mg 01/26/22 04:27 01/26/22 04:31 Dexamethasone Sod Phosphate 10 Mg/Ml IV 01/26/22 04:28 10 mg STAT ONE Administration Dexamethasone Sodium Phosphate Confirm 01/26/22 04:30 Dexamethasone Sod Phosphate 10 Mg/Ml Administered 01/26/22 04:31 Dose 10 mg .ROUTE .STK-MED ONE Fentanyl Citrate 25 mcg 01/26/22 02:40 01/26/22 03:01 Fentanyl Citrate 100 Mcg/2 Ml* Vial IV 01/26/22 02:41 25 mcg STAT ONE Administration Fentanyl Citrate Confirm 01/26/22 02:59 Fentanyl Citrate 100 Mcg/2 Ml* Vial Administered 01/26/22 03:00 Dose 100 mcg .ROUTE .STK-MED ONE Sodium Chloride 1,000 mls @ 999 mls/hr 01/25/22 20:31 01/25/22 22:41 Sodium Chloride 0.9% 1000 Ml IV 01/25/22 21:31 Infused .Q1H1M STA Infusion Sodium Chloride Confirm 01/25/22 20:38 Sodium Chloride 0.9% 1000 Ml Administered 01/25/22 20:39 Dose 1,000 mls @ ud .ROUTE .STK-MED ONE Sodium Chloride 1,000 mls @ 999 mls/hr 01/25/22 22:57 01/26/22 02:16 Sodium Chloride 0.9% 1000 Ml IV 01/25/22 23:57 Infused .Q1H1M STA Infusion Sodium Chloride Confirm 01/25/22 23:31 Sodium Chloride 0.9% 1000 Ml Administered 01/25/22 23:32 Dose 1,000 mls @ ud .ROUTE .STK-MED ONE Ondansetron HCl 4 mg 01/25/22 20:34 08/08/22 20:39 Ondansetron Hcl 4 Mg/2 Ml Vial IV 01/25/22 20:35 4 mg STAT ONE Administration Ondansetron HCl Confirm 01/25/22 20:38 Ondansetron Hcl 4 Mg/2 Ml Vial Administered 01/25/22 20:39 Dose 4 mg .ROUTE .STK-MED ONE Ondansetron HCl 4 mg 01/26/22 02:40 01/26/22 03:01 Ondansetron Hcl 4 Mg/2 Ml Vial IV 01/26/22 02:41 4 mg STAT ONE Administration Ondansetron HCl Confirm 01/26/22 02:58 Ondansetron Hcl 4 Mg/2 Ml Vial Administered 01/26/22 02:59 Dose 4 mg .ROUTE .STK-MED ONE Lab/Rad Data: Laboratory Result Diagrams 01/25/22 20:58 01/25/22 20:58 Laboratory Results 01/26/22 01/25/22 01/25/22 Range/Units 01:36 22:57 20:58 WBC (4.0-10.5) x10^3/uL RBC (4.1-5.4) x10^6/uL Hgb (12.0-16.0) g/dL Hct (35-47) % MCV (78-100) fL MCH (26-32) pg MCHC (32-36) g/dL RDW (11.5-14.0) % Plt Count (150-450) x10^3/uL MPV (7.5-11.0) fL Gran % (36.0-66.0) % Immature Gran % (Auto) (0.00-0.4) % Nucleat RBC Rel Count (0.00-0.1) % Eos # (Auto) (0-0.5) x10^3/uL Immature Gran # (Auto) (0.00-0.03) x10^3u/L Absolute Lymphs (auto) (1.0-4.6) x10^3/uL Absolute Monos (auto) (0.0-1.3) x10^3/uL Absolute Nucleated RBC (0.00-0.01) x10^3u/L Lymphocytes % (24.0-44.0) % Monocytes % (0.0-12.0) % Eosinophils % (0.00-5.0) % Basophils % (0.0-0.4) % Absolute Granulocytes (1.4-6.9) x10^3/uL Basophils # (0-0.4) x10^3/uL D-Dimer 0.44 (0.0-0.50) mg/L Sodium (137-145) mmol/L Potassium (3.5-5.1) mmol/L Chloride (98-107) mmol/L Carbon Dioxide (22-30) mmol/L Anion Gap (5-15) MEQ/L BUN (7-17) mg/dL Creatinine (0.52-1.04) mg/dL Estimated GFR ML/MIN Glucose (74-106) mg/dL Lactic Acid (0.4-2.0) Calcium (8.4-10.2) mg/dL Total Bilirubin (0.2-1.3) mg/dL AST (14-36) U/L ALT (0-35) U/L Alkaline Phosphatase (38-126) U/L Troponin I 0.057 H* (0.000-0.034) ng/mL Serum Total Protein (6.3-8.2) g/dL Albumin (3.5-5.0) g/dL Urinalys Dipstick Clnc Urine Color (YELLOW) Urine Appearance (CLEAR) Urine pH (5-6) Ur Specific Krebs (1.005-1.025) POC Urine Protein Conf (Negative) Urine Ketones (NEGATIVE) Urine Nitrite (NEGATIVE) Urine Bilirubin (NEGATIVE) Urine Urobilinogen (0-1) mg/dL Urine Leukocytes (NEGATIVE) Urine WBC (Auto) (0-5) /HPF Urine RBC (Auto) (0-2) /HPF U Epithel Cells (Auto) (FEW) /HPF Urine RBC (0-5) Kevin/ul Urine Mucus (Auto) (NEGATIVE) /HPF Ur Culture Indicated? Urine Glucose (NEGATIVE) mg/dL Stl Occult Blood (IFOB) Cancelled 01/25/22 01/25/22 01/25/22 Range/Units 20:58 20:58 20:47 WBC 8.5 (4.0-10.5) x10^3/uL RBC 3.91 L (4.1-5.4) x10^6/uL Hgb 11.4 L (12.0-16.0) g/dL Hct 34.5 L (35-47) % MCV 88.2 (78-100) fL MCH 29.2 (26-32) pg MCHC 33.0 (32-36) g/dL RDW 14.7 H (11.5-14.0) % Plt Count 157 (150-450) x10^3/uL MPV 10.7 (7.5-11.0) fL Gran % 68.2 H (36.0-66.0) % Immature Gran % (Auto) 0.5 H (0.00-0.4) % Nucleat RBC Rel Count 0.0 (0.00-0.1) % Eos # (Auto) 0.13 (0-0.5) x10^3/uL Immature Gran # (Auto) 0.04 H (0.00-0.03) x10^3u/L Absolute Lymphs (auto) 1.77 (1.0-4.6) x10^3/uL Absolute Monos (auto) 0.73 (0.0-1.3) x10^3/uL Absolute Nucleated RBC 0.00 (0.00-0.01) x10^3u/L Lymphocytes % 20.8 L (24.0-44.0) % Monocytes % 8.6 (0.0-12.0) % Eosinophils % 1.5 (0.00-5.0) % Basophils % 0.4 (0.0-0.4) % Absolute Granulocytes 5.79 (1.4-6.9) x10^3/uL Basophils # 0.03 (0-0.4) x10^3/uL D-Dimer (0.0-0.50) mg/L Sodium 139 (137-145) mmol/L Potassium 3.6 (3.5-5.1) mmol/L Chloride 106 (98-107) mmol/L Carbon Dioxide 26 (22-30) mmol/L Anion Gap 10.8 (5-15) MEQ/L BUN 29 H (7-17) mg/dL Creatinine 0.40 L (0.52-1.04) mg/dL Estimated GFR > 60.0 ML/MIN Glucose 187 H (74-106) mg/dL Lactic Acid 1.6 (0.4-2.0) Calcium 10.9 H (8.4-10.2) mg/dL Total Bilirubin 1.10 (0.2-1.3) mg/dL AST 49 H (14-36) U/L ALT 55 H (0-35) U/L Alkaline Phosphatase 192 H (38-126) U/L Troponin I (0.000-0.034) ng/mL Serum Total Protein 6.7 (6.3-8.2) g/dL Albumin 3.6 (3.5-5.0) g/dL Urinalys Dipstick Clnc Urine Color (YELLOW) Urine Appearance (CLEAR) Urine pH (5-6) Ur Specific Krebs (1.005-1.025) POC Urine Protein Conf (Negative) Urine Ketones (NEGATIVE) Urine Nitrite (NEGATIVE) Urine Bilirubin (NEGATIVE) Urine Urobilinogen (0-1) mg/dL Urine Leukocytes (NEGATIVE) Urine WBC (Auto) (0-5) /HPF Urine RBC (Auto) (0-2) /HPF U Epithel Cells (Auto) (FEW) /HPF Urine RBC (0-5) Kevin/ul Urine Mucus (Auto) (NEGATIVE) /HPF Ur Culture Indicated? Urine Glucose (NEGATIVE) mg/dL Stl Occult Blood (IFOB) 01/25/22 01/25/22 Range/Units 20:42 00:15 WBC (4.0-10.5) x10^3/uL RBC (4.1-5.4) x10^6/uL Hgb (12.0-16.0) g/dL Hct (35-47) % MCV (78-100) fL MCH (26-32) pg MCHC (32-36) g/dL RDW (11.5-14.0) % Plt Count (150-450) x10^3/uL MPV (7.5-11.0) fL Gran % (36.0-66.0) % Immature Gran % (Auto) (0.00-0.4) % Nucleat RBC Rel Count (0.00-0.1) % Eos # (Auto) (0-0.5) x10^3/uL Immature Gran # (Auto) (0.00-0.03) x10^3u/L Absolute Lymphs (auto) (1.0-4.6) x10^3/uL Absolute Monos (auto) (0.0-1.3) x10^3/uL Absolute Nucleated RBC (0.00-0.01) x10^3u/L Lymphocytes % (24.0-44.0) % Monocytes % (0.0-12.0) % Eosinophils % (0.00-5.0) % Basophils % (0.0-0.4) % Absolute Granulocytes (1.4-6.9) x10^3/uL Basophils # (0-0.4) x10^3/uL D-Dimer (0.0-0.50) mg/L Sodium (137-145) mmol/L Potassium (3.5-5.1) mmol/L Chloride (98-107) mmol/L Carbon Dioxide (22-30) mmol/L Anion Gap (5-15) MEQ/L BUN (7-17) mg/dL Creatinine (0.52-1.04) mg/dL Estimated GFR ML/MIN Glucose (74-106) mg/dL Lactic Acid (0.4-2.0) Calcium (8.4-10.2) mg/dL Total Bilirubin (0.2-1.3) mg/dL AST (14-36) U/L ALT (0-35) U/L Alkaline Phosphatase (38-126) U/L Troponin I 0.055 H* (0.000-0.034) ng/mL Serum Total Protein (6.3-8.2) g/dL Albumin (3.5-5.0) g/dL Urinalys Dipstick Clnc MAIN LAB Urine Color YELLOW (YELLOW) Urine Appearance CLEAR (CLEAR) Urine pH 6.0 (5-6) Ur Specific Krebs 1.025 (1.005-1.025) POC Urine Protein Conf NEGATIVE (Negative) Urine Ketones TRACE (NEGATIVE) Urine Nitrite NEGATIVE (NEGATIVE) Urine Bilirubin NEGATIVE (NEGATIVE) Urine Urobilinogen 0.2 (0-1) mg/dL Urine Leukocytes NEGATIVE (NEGATIVE) Urine WBC (Auto) 0-2 (0-5) /HPF Urine RBC (Auto) 0-2 (0-2) /HPF U Epithel Cells (Auto) RARE (FEW) /HPF Urine RBC NEGATIVE (0-5) Kevin/ul Urine Mucus (Auto) SLIGHT (NEGATIVE) /HPF Ur Culture Indicated? NO Urine Glucose NEGATIVE (NEGATIVE) mg/dL Stl Occult Blood (IFOB) - Progress Progress: improved Progress Note: 01/26/22 04:20 1L NS bolus/4mg IV Zofran w improvement Pt states that she has had some melanic stool. Stool specimen sent to lab w positive result, but result pulled because not on proper media. 01/26/22 04:[address] Downs 01/26/22 05:14 Pt states that she feels better before admit Discussed with : Antwan Counseled pt/family regarding: lab results, diagnosis, need for follow-up, rad results - Departure Departure Disposition: Observation Clinical Impression: COVID-19, Enteritis, Elevated troponin Condition: Stable Critical Care Time: No
[2022-01-26] MEDS ORDERED: Zofran 4 MG/2 ML VIAL IV ONE (02:40)
[2022-01-26] MEDS ORDERED: SUBLIMAZE 100 MCG/2 ML IV ONE (02:40)
[2022-01-26] MEDS ORDERED: Zofran 4 MG/2 ML VIAL ONE (02:58)
[2022-01-26] MEDS ORDERED: SUBLIMAZE 100 MCG/2 ML ONE (02:59)
[2022-01-26 03:25] LABS: INFLUENZA A NEGATIVE (NEGATIVE); INFLUENZA B NEGATIVE (NEGATIVE); RESPIRATORY SYNCTIAL VIRUS NEGATIVE (Negative)
[2022-01-26 03:32] LABS: SARS-CoV-2 Xpert Express POSITIVE (NEGATIVE)
[2022-01-26] MEDS ORDERED: Zofran 4 MG/2 ML VIAL IV PRN (04:23)
[2022-01-26] MEDS ORDERED: DECADRON 10MG INJ. IV ONE (04:27)
[2022-01-26] MEDS ORDERED: DECADRON 10MG INJ. ONE (04:30)
--- NOTE | 2022-01-26 09:05 | XRAY ---
Indication: Cough and short of breath. Positive Covid 19. Pulmonary embolus. Multiple contiguous axial images obtained through the chest using 100 cc Isovue 370 contrast and PE protocol. Comparison: None Adequate opacification of the pulmonary arteries. However mild respiration artifact limits evaluation of the more distal lobar and segmental branches. No central pulmonary embolus. Heart is not enlarged. Aorta is mildly arteriosclerotic without aneurysm/dissection. No pathologic mediastinal/hilar lymphadenopathy. Small hiatal hernia. Lungs demonstrates minimal bilateral dependent atelectasis. No suspicious pulmonary mass, infiltrate, consolidation, or effusion. Bony thorax demonstrates mild degenerative changes throughout spine and healing right anterior right [address] abdomen/pelvis reported separately. Impression: 1. Pulmonary embolus evaluation limited by respiration artifact. No obvious central pulmonary embolus. 2. No acute cardiopulmonary abnormalities. 3. Incidental small hiatal hernia, degenerative spondylosis, and healing right 9 rib fracture. Comment: Preliminary interpretation made by [facility]. No critical discrepancy.
--- NOTE | 2022-01-26 09:13 | XRAY ---
Indication: Abdomen pain, nausea, vomiting, diarrhea, and weakness. Positive Covid 19. Multiple contiguous axial images obtained through the abdomen and pelvis using 100 cc Isovue 370 contrast. Comparison: April 20, 2020 CT chest reported separately. Noncontrasted stomach and bowel loops appear nonobstructed. Several small bowel loops are now mild/moderately fluid distended, greatest in left abdomen up to 3.7 cm diameter with circumferential wall thickening favoring enteritis. No free fluid/air. Liver remains enlarged measuring 21.8 cm. Liver now demonstrates micro-lobular margins as seen with cirrhosis. Spleen remains enlarged up to 17.8 cm. Main portal vein is now enlarged up to 2.2 cm concerning for portal hypertension. Again cholecystectomy and hysterectomy. Both kidneys enhance and excrete with 2 small left mid renal cortical cysts, largest 1.2 cm not seen on previous noncontrast exam. Remaining pancreas, adrenal glands, kidneys, ureters, and bladder are unremarkable. Again mild scattered aortoiliac calcifications. No AAA or pathologic retroperitoneal lymphadenopathy. Osseous structures intact again with mild degenerative spondylosis throughout the spine and minimal grade 1 L4 listhesis. Impression: 1. New fluid distended small bowel loops with circumferential wall thickening favoring enteritis. 2. Cirrhotic hepatomegaly without ascites. 3. Again splenomegaly with now enlarged main portal vein favoring portal hypertension. 4. Chronic findings including left renal cysts, arteriosclerotic disease, degenerative spondylosis and grade 1 L4 listhesis. Comment: Preliminary interpretation made by C. No critical discrepancy.
--- NOTE | 2022-01-26 09:13 | XRAY ---
Indication: Nausea. Positive Covid 19. Comparison: April 20, 2020 Portable chest remains clear. Heart not enlarged. Bony thorax intact. No new/acute findings.
[2022-01-26] MEDS: Sodium Chloride 0.9% 1000 ML 1,000 ML IV SCH (09:34)
[2022-01-26] MEDS ORDERED: PROTONIX 40 MG IV IV SCH (10:00)
[2022-01-26 10:10] LABS: 027 TOX PROD PRESUMPTIVE NEGATIVE (NEGATIVE); TOXIGENIC C. DIFF ORG NEGATIVE (NEGATIVE)
--- NOTE | 2022-01-26 13:19 | PCM.HP ---
History of Present Illness - Chief Complaint Chief Complaint: COVID 19, ENTERITIS, POSSIBLE GI BLEED, ELEVATED TROPONINS History of Present Illness: is a 66 year old female who presented to ER with fever,chills,N/V/D weakness and black stools.. Patient has known Covid positive for 12 daysStool for occult blood is positive today and patient will need EGD,gen surgery consulting. Patient c/o fatigue and nausea but no other complaints at this time. - Review of Systems Constitutional: Fever (feeling feverish), Chills, Fatigue, Weakness Eyes: No Symptoms Ears, Nose, & Throat: No Symptoms Respiratory: Cough (mild) Cardiac: No Symptoms Abdominal/Gastrointestinal: Nausea, Vomiting, Melena Genitourinary Symptoms: No Symptoms Musculoskeletal: Arthralgias, Myalgias Skin: No Symptoms Neurological: No Symptoms Psychological: No Symptoms, Anxiety, Depression (is on Abilify) Hematologic/Lymphatic: Anemia Medications & Allergies Home Medications: Home Medication List Atorvastatin Calcium 20 mg PO DAILY 04/20/20 [History Confirmed 01/25/22] Celecoxib [Celebrex] 200 mg PO DAILY 04/20/20 [History Confirmed 01/25/22] Fluoxetine HCl 40 mg PO DAILY 04/20/20 [History Confirmed 01/26/22] Metformin HCl 500 mg [Glucophage 500 MG] 500 mg PO DAILY 04/20/20 [History Confirmed 01/26/22] Tramadol HCl 50 mg [Ultram 50 mg] 50 mg PO TIDPRN PRN 04/20/20 [History Confirmed 01/26/22] Aripiprazole [Abilify] 2 mg PO HS 01/25/22 [History Confirmed 01/26/22] Budesonide [Budesonide EC] 9 mg PO DAILY 01/25/22 [History Confirmed 01/26/22] Potassium Chloride 20 meq PO DAILY 01/25/22 [History Confirmed 01/25/22] Acetaminophen 325 mg [Tylenol 325 mg] 650 mg PO HS 01/26/22 [History Confirmed 01/25/22] Atenolol/Chlorthalidone [Tenoretic 50 Tablet] 1 each PO DAILY 01/26/22 [History Confirmed 01/26/22] Famotidine 20 mg [Pepcid 20 MG] 20 mg PO BID #60 tablet 01/28/22 [Rx] PANTOPRAZOLE 40 mg Tablet [Protonix 40MG Tablet] 40 mg PO BID #60 tab 01/28/22 [Rx] Sucralfate 1 gm [Carafate 1 GM] 1 g PO HS #30 tablet 01/28/22 [Rx] Allergies/Adverse Reactions: Allergies Allergy/AdvReac Type Severity Reaction Status Date / Time Penicillins Allergy Verified 01/26/22 05:52 - Past Medical History Past Medical History: Yes Neurological History: No Pertinent History ENT History: Cataracts Cardiac History: Hypertension Respiratory History: No Pertinent History Endocrine Medical History: Diabetes Type II, Liver Disease Musculoskelatal History: Arthritis, Fibromyalgia GI Medical History: Gallbladder Disease History: No Pertinent History Pyscho-Social History: Depression Reproductive Disorders: No Pertinent History Comment: fibro,liver disease?, - Female History Are you now?: No - Past Surgical History Past Surgical History: Yes Neuro Surgical History: No Pertinent History Cardiac History: No Pertinent History Respiratory Surgery: No Pertinent History GI Surgical History: Cholecystectomy Genitourinary Surgical Hx: No Pertinent History Musculskeletal Surgical Hx: Orthopedic Surgery Female Surgical History: Hysterectomy, Tubal Ligation Other Surgical History: knee, heel spur - Social History Smoking Status: Never smoker Exposure to second hand smoke: Yes Alcohol: None Drug Use: none Significant Family History: no pertinent family hx - Physical Exam Vital Signs: Vital Signs - 24 hr Temp Pulse Resp BP BP Pulse Ox 01/26/22 12:00 97.3 F 113 H 22 120/59 96 01/26/22 08:00 97.3 F 116 H 22 129/74 91 L 01/26/22 05:43 97.3 F 116 H 22 126/58 93 L 01/26/22 05:31 115 H 20 94 L 01/26/22 05:15 96 01/26/22 00:00 97.2 F 121 H 18 145/72 95 01/25/22 23:00 97.6 F 124 H 18 110/56 95 01/25/22 22:16 130 H 18 146/84 96 01/25/22 21:00 127 H 20 119/70 96 01/25/22 20:02 99.3 F 136 H 20 152/83 97 General Appearance: no apparent distress, other (pale) Neurologic Exam: alert, oriented x 3, cooperative, normal mood/affect Eye Exam: eyes nml inspection Ears, Nose, Throat Exam: normal ENT inspection, moist mucous membranes Neck Exam: normal inspection Respiratory Exam: diminished breath sounds Cardiovascular Exam: regular rate/rhythm Gastrointestinal/Abdomen Exam: soft, normal bowel sounds, tenderness (epigastrum) Pelvic Exam: not done Rectal Exam: not done Back Exam: normal inspection Extremity Exam: normal inspection Skin Exam: warm, dry, pale Results - Labs Lab/Micro Results: Lab Results-Last 24 Hours 01/25/22 01/25/22 01/25/22 Range/Units 00:15 20:42 20:47 WBC (4.0-10.5) x10^3/uL RBC (4.1-5.4) x10^6/uL Hgb (12.0-16.0) g/dL Hct (35-47) % MCV (78-100) fL MCH (26-32) pg MCHC (32-36) g/dL RDW (11.5-14.0) % Plt Count (150-450) x10^3/uL MPV (7.5-11.0) fL Gran % (36.0-66.0) % Immature Gran % (Auto) (0.00-0.4) % Nucleat RBC Rel Count (0.00-0.1) % Eos # (Auto) (0-0.5) x10^3/uL Immature Gran # (Auto) (0.00-0.03) x10^3u/L Absolute Lymphs (auto) (1.0-4.6) x10^3/uL Absolute Monos (auto) (0.0-1.3) x10^3/uL Absolute Nucleated RBC (0.00-0.01) x10^3u/L Lymphocytes % (24.0-44.0) % Monocytes % (0.0-12.0) % Eosinophils % (0.00-5.0) % Basophils % (0.0-0.4) % Absolute Granulocytes (1.4-6.9) x10^3/uL Basophils # (0-0.4) x10^3/uL D-Dimer (0.0-0.50) mg/L Sodium (137-145) mmol/L Potassium (3.5-5.1) mmol/L Chloride (98-107) mmol/L Carbon Dioxide (22-30) mmol/L Anion Gap (5-15) MEQ/L BUN (7-17) mg/dL Creatinine (0.52-1.04) mg/dL Estimated GFR ML/MIN Glucose (74-106) mg/dL POC Glucometer (74 to 106) mg/dL Lactic Acid 1.6 (0.4-2.0) Calcium (8.4-10.2) mg/dL Total Bilirubin (0.2-1.3) mg/dL AST (14-36) U/L ALT (0-35) U/L Alkaline Phosphatase (38-126) U/L Troponin I 0.055 H* (0.000-0.034) ng/mL Serum Total Protein (6.3-8.2) g/dL Albumin (3.5-5.0) g/dL Urinalys Dipstick Clnc MAIN LAB Urine Color YELLOW (YELLOW) Urine Appearance CLEAR (CLEAR) Urine pH 6.0 (5-6) Ur Specific [place] 1.025 (1.005-1.025) POC Urine Protein Conf NEGATIVE (Negative) Urine Ketones TRACE (NEGATIVE) Urine Nitrite NEGATIVE (NEGATIVE) Urine Bilirubin NEGATIVE (NEGATIVE) Urine Urobilinogen 0.2 (0-1) mg/dL Urine Leukocytes NEGATIVE (NEGATIVE) Urine WBC (Auto) 0-2 (0-5) /HPF Urine RBC (Auto) 0-2 (0-2) /HPF U Epithel Cells (Auto) RARE (FEW) /HPF Urine RBC NEGATIVE (0-5) Kevin/ul Urine Mucus (Auto) SLIGHT (NEGATIVE) /HPF Ur Culture Indicated? NO Urine Glucose NEGATIVE (NEGATIVE) mg/dL Stool Occult Blood (NEGATIVE) Stl Occult Blood (IFOB) C. difficile Screen (NEGATIVE) C.difficile 027-NAP1-B1 (NEGATIVE) Influenza Type A Ag (NEGATIVE) Influenza Type B Ag (NEGATIVE) RSV (PCR) (Negative) SARS-CoV-2 (PCR) (NEGATIVE) 01/25/22 01/25/22 01/25/22 Range/Units 20:58 20:58 20:58 WBC 8.5 (4.0-10.5) x10^3/uL RBC 3.91 L (4.1-5.4) x10^6/uL Hgb 11.4 L (12.0-16.0) g/dL Hct 34.5 L (35-47) % MCV 88.2 (78-100) fL MCH 29.2 (26-32) pg MCHC 33.0 (32-36) g/dL RDW 14.7 H (11.5-14.0) % Plt Count 157 (150-450) x10^3/uL MPV 10.7 (7.5-11.0) fL Gran % 68.2 H (36.0-66.0) % Immature Gran % (Auto) 0.5 H (0.00-0.4) % Nucleat RBC Rel Count 0.0 (0.00-0.1) % Eos # (Auto) 0.13 (0-0.5) x10^3/uL Immature Gran # (Auto) 0.04 H (0.00-0.03) x10^3u/L Absolute Lymphs (auto) 1.77 (1.0-4.6) x10^3/uL Absolute Monos (auto) 0.73 (0.0-1.3) x10^3/uL Absolute Nucleated RBC 0.00 (0.00-0.01) x10^3u/L Lymphocytes % 20.8 L (24.0-44.0) % Monocytes % 8.6 (0.0-12.0) % Eosinophils % 1.5 (0.00-5.0) % Basophils % 0.4 (0.0-0.4) % Absolute Granulocytes 5.79 (1.4-6.9) x10^3/uL Basophils # 0.03 (0-0.4) x10^3/uL D-Dimer (0.0-0.50) mg/L Sodium 139 (137-145) mmol/L Potassium 3.6 (3.5-5.1) mmol/L Chloride 106 (98-107) mmol/L Carbon Dioxide 26 (22-30) mmol/L Anion Gap 10.8 (5-15) MEQ/L BUN 29 H (7-17) mg/dL Creatinine 0.40 L (0.52-1.04) mg/dL Estimated GFR > 60.0 ML/MIN Glucose 187 H (74-106) mg/dL POC Glucometer (74 to 106) mg/dL Lactic Acid (0.4-2.0) Calcium 10.9 H (8.4-10.2) mg/dL Total Bilirubin 1.10 (0.2-1.3) mg/dL AST 49 H (14-36) U/L ALT 55 H (0-35) U/L Alkaline Phosphatase 192 H (38-126) U/L Troponin I 0.057 H* (0.000-0.034) ng/mL Serum Total Protein 6.7 (6.3-8.2) g/dL Albumin 3.6 (3.5-5.0) g/dL Urinalys Dipstick Clnc Urine Color (YELLOW) Urine Appearance (CLEAR) Urine pH (5-6) Ur Specific [place] (1.005-1.025) POC Urine Protein Conf (Negative) Urine Ketones (NEGATIVE) Urine Nitrite (NEGATIVE) Urine Bilirubin (NEGATIVE) Urine Urobilinogen (0-1) mg/dL Urine Leukocytes (NEGATIVE) Urine WBC (Auto) (0-5) /HPF Urine RBC (Auto) (0-2) /HPF U Epithel Cells (Auto) (FEW) /HPF Urine RBC (0-5) Kevin/ul Urine Mucus (Auto) (NEGATIVE) /HPF Ur Culture Indicated? Urine Glucose (NEGATIVE) mg/dL Stool Occult Blood (NEGATIVE) Stl Occult Blood (IFOB) C. difficile Screen (NEGATIVE) C.difficile 027-NAP1-B1 (NEGATIVE) Influenza Type A Ag (NEGATIVE) Influenza Type B Ag (NEGATIVE) RSV (PCR) (Negative) SARS-CoV-2 (PCR) (NEGATIVE) 01/25/22 01/26/22 01/26/22 Range/Units 22:57 01:36 04:56 WBC (4.0-10.5) x10^3/uL RBC (4.1-5.4) x10^6/uL Hgb (12.0-16.0) g/dL Hct (35-47) % MCV (78-100) fL MCH (26-32) pg MCHC (32-36) g/dL RDW (11.5-14.0) % Plt Count (150-450) x10^3/uL MPV (7.5-11.0) fL Gran % (36.0-66.0) % Immature Gran % (Auto) (0.00-0.4) % Nucleat RBC Rel Count (0.00-0.1) % Eos # (Auto) (0-0.5) x10^3/uL Immature Gran # (Auto) (0.00-0.03) x10^3u/L Absolute Lymphs (auto) (1.0-4.6) x10^3/uL Absolute Monos (auto) (0.0-1.3) x10^3/uL Absolute Nucleated RBC (0.00-0.01) x10^3u/L Lymphocytes % (24.0-44.0) % Monocytes % (0.0-12.0) % Eosinophils % (0.00-5.0) % Basophils % (0.0-0.4) % Absolute Granulocytes (1.4-6.9) x10^3/uL Basophils # (0-0.4) x10^3/uL D-Dimer 0.44 (0.0-0.50) mg/L Sodium (137-145) mmol/L Potassium (3.5-5.1) mmol/L Chloride (98-107) mmol/L Carbon Dioxide (22-30) mmol/L Anion Gap (5-15) MEQ/L BUN (7-17) mg/dL Creatinine (0.52-1.04) mg/dL Estimated GFR ML/MIN Glucose (74-106) mg/dL POC Glucometer (74 to 106) mg/dL Lactic Acid (0.4-2.0) Calcium (8.4-10.2) mg/dL Total Bilirubin (0.2-1.3) mg/dL AST (14-36) U/L ALT (0-35) U/L Alkaline Phosphatase (38-126) U/L Troponin I 0.046 H* (0.000-0.034) ng/mL Serum Total Protein (6.3-8.2) g/dL Albumin (3.5-5.0) g/dL Urinalys Dipstick Clnc Urine Color (YELLOW) Urine Appearance (CLEAR) Urine pH (5-6) Ur Specific [place] (1.005-1.025) POC Urine Protein Conf (Negative) Urine Ketones (NEGATIVE) Urine Nitrite (NEGATIVE) Urine Bilirubin (NEGATIVE) Urine Urobilinogen (0-1) mg/dL Urine Leukocytes (NEGATIVE) Urine WBC (Auto) (0-5) /HPF Urine RBC (Auto) (0-2) /HPF U Epithel Cells (Auto) (FEW) /HPF Urine RBC (0-5) Kevin/ul Urine Mucus (Auto) (NEGATIVE) /HPF Ur Culture Indicated? Urine Glucose (NEGATIVE) mg/dL Stool Occult Blood (NEGATIVE) Stl Occult Blood (IFOB) Cancelled C. difficile Screen (NEGATIVE) C.difficile 027-NAP1-B1 (NEGATIVE) Influenza Type A Ag (NEGATIVE) Influenza Type B Ag (NEGATIVE) RSV (PCR) (Negative) SARS-CoV-2 (PCR) (NEGATIVE) 01/26/22 01/26/22 01/26/22 Range/Units 07:02 08:01 08:12 WBC (4.0-10.5) x10^3/uL RBC (4.1-5.4) x10^6/uL Hgb (12.0-16.0) g/dL Hct (35-47) % MCV (78-100) fL MCH (26-32) pg MCHC (32-36) g/dL RDW (11.5-14.0) % Plt Count (150-450) x10^3/uL MPV (7.5-11.0) fL Gran % (36.0-66.0) % Immature Gran % (Auto) (0.00-0.4) % Nucleat RBC Rel Count (0.00-0.1) % Eos # (Auto) (0-0.5) x10^3/uL Immature Gran # (Auto) (0.00-0.03) x10^3u/L Absolute Lymphs (auto) (1.0-4.6) x10^3/uL Absolute Monos (auto) (0.0-1.3) x10^3/uL Absolute Nucleated RBC (0.00-0.01) x10^3u/L Lymphocytes % (24.0-44.0) % Monocytes % (0.0-12.0) % Eosinophils % (0.00-5.0) % Basophils % (0.0-0.4) % Absolute Granulocytes (1.4-6.9) x10^3/uL Basophils # (0-0.4) x10^3/uL D-Dimer (0.0-0.50) mg/L Sodium (137-145) mmol/L Potassium (3.5-5.1) mmol/L Chloride (98-107) mmol/L Carbon Dioxide (22-30) mmol/L Anion Gap (5-15) MEQ/L BUN (7-17) mg/dL Creatinine (0.52-1.04) mg/dL Estimated GFR ML/MIN Glucose (74-106) mg/dL POC Glucometer 180 H (74 to 106) mg/dL Lactic Acid (0.4-2.0) Calcium (8.4-10.2) mg/dL Total Bilirubin (0.2-1.3) mg/dL AST (14-36) U/L ALT (0-35) U/L Alkaline Phosphatase (38-126) U/L Troponin I 0.031 (0.000-0.034) ng/mL Serum Total Protein (6.3-8.2) g/dL Albumin (3.5-5.0) g/dL Urinalys Dipstick Clnc Urine Color (YELLOW) Urine Appearance (CLEAR) Urine pH (5-6) Ur Specific [place] (1.005-1.025) POC Urine Protein Conf (Negative) Urine Ketones (NEGATIVE) Urine Nitrite (NEGATIVE) Urine Bilirubin (NEGATIVE) Urine Urobilinogen (0-1) mg/dL Urine Leukocytes (NEGATIVE) Urine WBC (Auto) (0-5) /HPF Urine RBC (Auto) (0-2) /HPF U Epithel Cells (Auto) (FEW) /HPF Urine RBC (0-5) Kevin/ul Urine Mucus (Auto) (NEGATIVE) /HPF Ur Culture Indicated? Urine Glucose (NEGATIVE) mg/dL Stool Occult Blood POSITIVE A (NEGATIVE) Stl Occult Blood (IFOB) C. difficile Screen (NEGATIVE) C.difficile 027-NAP1-B1 (NEGATIVE) Influenza Type A Ag (NEGATIVE) Influenza Type B Ag (NEGATIVE) RSV (PCR) (Negative) SARS-CoV-2 (PCR) (NEGATIVE) 01/26/22 01/26/22 01/26/22 Range/Units 08:15 11:59 Unknown WBC (4.0-10.5) x10^3/uL RBC (4.1-5.4) x10^6/uL Hgb (12.0-16.0) g/dL Hct (35-47) % MCV (78-100) fL MCH (26-32) pg MCHC (32-36) g/dL RDW (11.5-14.0) % Plt Count (150-450) x10^3/uL MPV (7.5-11.0) fL Gran % (36.0-66.0) % Immature Gran % (Auto) (0.00-0.4) % Nucleat RBC Rel Count (0.00-0.1) % Eos # (Auto) (0-0.5) x10^3/uL Immature Gran # (Auto) (0.00-0.03) x10^3u/L Absolute Lymphs (auto) (1.0-4.6) x10^3/uL Absolute Monos (auto) (0.0-1.3) x10^3/uL Absolute Nucleated RBC (0.00-0.01) x10^3u/L Lymphocytes % (24.0-44.0) % Monocytes % (0.0-12.0) % Eosinophils % (0.00-5.0) % Basophils % (0.0-0.4) % Absolute Granulocytes (1.4-6.9) x10^3/uL Basophils # (0-0.4) x10^3/uL D-Dimer (0.0-0.50) mg/L Sodium (137-145) mmol/L Potassium (3.5-5.1) mmol/L Chloride (98-107) mmol/L Carbon Dioxide (22-30) mmol/L Anion Gap (5-15) MEQ/L BUN (7-17) mg/dL Creatinine (0.52-1.04) mg/dL Estimated GFR ML/MIN Glucose (74-106) mg/dL POC Glucometer 225 H (74 to 106) mg/dL Lactic Acid (0.4-2.0) Calcium (8.4-10.2) mg/dL Total Bilirubin (0.2-1.3) mg/dL AST (14-36) U/L ALT (0-35) U/L Alkaline Phosphatase (38-126) U/L Troponin I (0.000-0.034) ng/mL Serum Total Protein (6.3-8.2) g/dL Albumin (3.5-5.0) g/dL Urinalys Dipstick Clnc Urine Color (YELLOW) Urine Appearance (CLEAR) Urine pH (5-6) Ur Specific [place] (1.005-1.025) POC Urine Protein Conf (Negative) Urine Ketones (NEGATIVE) Urine Nitrite (NEGATIVE) Urine Bilirubin (NEGATIVE) Urine Urobilinogen (0-1) mg/dL Urine Leukocytes (NEGATIVE) Urine WBC (Auto) (0-5) /HPF Urine RBC (Auto) (0-2) /HPF U Epithel Cells (Auto) (FEW) /HPF Urine RBC (0-5) Kevin/ul Urine Mucus (Auto) (NEGATIVE) /HPF Ur Culture Indicated? Urine Glucose (NEGATIVE) mg/dL Stool Occult Blood (NEGATIVE) Stl Occult Blood (IFOB) C. difficile Screen NEGATIVE (NEGATIVE) C.difficile 027-NAP1-B1 PRESUMPTIVE NEGATIVE (NEGATIVE) Influenza Type A Ag NEGATIVE (NEGATIVE) Influenza Type B Ag NEGATIVE (NEGATIVE) RSV (PCR) NEGATIVE (Negative) SARS-CoV-2 (PCR) POSITIVE A (NEGATIVE) - Radiology Impressions Radiology Exams & Impressions: Radiology Procedures Category Date Time Status ABDOMEN AND PELVIS W CONTRAST [CT] Stat Exams 01/26/22 00:36 Completed CHEST 1 VIEW (PORTABLE) Stat Exams 01/25/22 20:33 Completed CHEST WITH CONTRAST [CT] Stat Exams 01/26/22 00:36 Completed Assessment/Plan (1) Melena Status: Acute Assessment & Plan: heme positive stool today,EGD scheduled in the AM Code(s): K92.1 - MELENA (2) COVID-19 Status: Acute Assessment & Plan: subacute ,tested positive approx 12 days ago,mild cough Code(s): U07.1 - COVID-19 (3) Abdominal pain Status: Acute Qualifiers: Abdominal location: epigastric Qualified Code(s): R10.13 - Epigastric pain Code(s): R10.9 - UNSPECIFIED ABDOMINAL PAIN (4) Fever Status: Acute Qualifiers: Fever type: unspecified Qualified Code(s): R50.9 - Fever, unspecified Code(s): R50.9 - FEVER, UNSPECIFIED (5) Elevated troponin Status: Acute Assessment & Plan: asymptomatic , EKG nonspecific ST changes siuns tachycrdia 120 in ER,monitor. Code(s): R77.8 - OTHER SPECIFIED ABNORMALITIES OF PLASMA PROTEINS
[2022-01-26] MEDS: NORCO 5/325 MG PO PRN (13:26)
[2022-01-26] MEDS ORDERED: HYDROCODONE-CHLORPHEN ER SUSP PO PRN (13:43)
[2022-01-26] MEDS ORDERED: ULTRAM 50 MG PO PRN (13:44)
[2022-01-26] MEDS ORDERED: HUMALOG SQ PRN (13:45)
[2022-01-26 13:58] LABS: Basophil (Absolute #) 0.01 x10^3/uL (0-0.4); Eosinophil (Absolute #) 0 x10^3/uL (0-0.5); Hematocrit 29.9 % (35-47); Hemoglobin 9.7 g/dL (12.0-16.0); Lymphocyte (Absolute #) 0.64 x10^3/uL (1.0-4.6); Lymphocytes % 15.5 % (24.0-44.0); Mean Cell Volume 91.4 fL (78-100); Mean Corpuscular Hemoglobin 29.7 pg (26-32); Mean Corpuscular Hgb Concent. 32.4 g/dL (32-36); Mean Platelet Volume 10.2 fL (7.5-11.0); Monocyte (Absolute #) 0.07 x10^3/uL (0.0-1.3); Monocytes % 1.7 % (0.0-12.0); Neutrophil % 82.1 % (36.0-66.0); Platelet Count 108 x10^3/uL (150-450); Red Blood Count 3.27 x10^6/uL (4.1-5.4); Red Cell Distribution Width 14.8 % (11.5-14.0); White Blood Count 4.1 x10^3/uL (4.0-10.5)
[2022-01-26] MEDS ORDERED: DECADRON 10MG INJ. IV SCH (14:00)
[2022-01-26] MEDS ORDERED: MEDICATION INTERVENTION MC SCH (14:00)
[2022-01-26] MEDS: Klor Con PO SCH (14:13)
[2022-01-26] MEDS: Lomotil PO PRN (14:13)
[2022-01-26] MEDS: CHLORTHALIDONE PO SCH (14:14)
[2022-01-26] MEDS: celeBREX 100 MG PO SCH (14:14)
[2022-01-26] MEDS: TENORMIN 50 MG PO SCH (14:14)
[2022-01-26] MEDS: Glucophage 500 MG PO SCH (14:14)
[2022-01-26] MEDS: ZOCOR 20MG PO SCH (14:14)
[2022-01-26] MEDS: Ativan 1 MG PO PRN ×2 (14:14→23:02)
[2022-01-26] MEDS: Prozac 20 MG PO SCH (14:14)
[2022-01-26 14:56] LABS: ALBUMIN 3.3 g/dL (3.5-5.0); ALKALINE PHOSPHATASE 154 U/L (38-126); AMYLASE 52 U/L (30-110); ANION GAP 10.6 MEQ/L (5-15); BLOOD UREA NITROGEN 17 mg/dL (7-17); CHLORIDE 110 mmol/L (98-107); Calcium 9.2 mg/dL (8.4-10.2); Carbon Dioxide 22 mmol/L (22-30); Creatinine 1 0.44 mg/dL (0.52-1.04); EST GLOMERULAR FILTRATION RATE > 60.0 ML/MIN; Glucose 224 mg/dL (74-106); LIPASE 57 U/L (23-300); NT PRO BNP 176 pg/mL (0-900); Potassium 3.5 mmol/L (3.5-5.1); SGOT/AST 46 U/L (14-36); SGPT/ALT 45 U/L (0-35); SODIUM 139 mmol/L (137-145); Total Protein 6.1 g/dL (6.3-8.2)
[2022-01-26] MEDS ORDERED: REMDESIVIR 200 MG in Sodium Chloride 0.9% 250 ML 250 ML IV ONE (15:00)
[2022-01-26 18:10] LABS: INR 1.15 (0.8-3.0)
[2022-01-26] MEDS ORDERED: NON-FORMULARY ITEM (Aripiprazole [Abilify] 2 MG Tablet) PO SCH (22:00)
[2022-01-26] MEDS: TYLENOL 325 MG PO SCH (23:02)
[2022-01-26] MEDS: Abilify 10 MG PO SCH (23:03)
[2022-01-26] MEDS: PROTONIX 40 MG IV IV SCH (23:04)
[2022-01-27] MEDS: Sodium Chloride 0.9% 1000 ML 1,000 ML IV SCH ×4 (03:44→23:00)
[2022-01-27 05:19] LABS: Absolute Neutrophil Ct (ANC) 4.96 x10^3/uL (1.4-6.9); Basophil (Absolute #) 0.01 x10^3/uL (0-0.4); Eosinophil % 0.2 % (0.00-5.0); Eosinophil (Absolute #) 0.01 x10^3/uL (0-0.5); Hematocrit 25.7 % (35-47); Hemoglobin 8.3 g/dL (12.0-16.0); Lymphocyte (Absolute #) 0.83 x10^3/uL (1.0-4.6); Lymphocytes % 13.4 % (24.0-44.0); Mean Cell Volume 90.2 fL (78-100); Mean Corpuscular Hemoglobin 29.1 pg (26-32); Mean Corpuscular Hgb Concent. 32.3 g/dL (32-36); Mean Platelet Volume 10.8 fL (7.5-11.0); Monocyte (Absolute #) 0.34 x10^3/uL (0.0-1.3); Monocytes % 5.5 % (0.0-12.0); Neutrophil % 80.1 % (36.0-66.0); Platelet Count 113 x10^3/uL (150-450); Red Blood Count 2.85 x10^6/uL (4.1-5.4); Red Cell Distribution Width 14.8 % (11.5-14.0); White Blood Count 6.2 x10^3/uL (4.0-10.5)
[2022-01-27 06:06] LABS: INR 1.16 (0.8-3.0); PROTIME 12.1 SECONDS (9.4-12.5)
[2022-01-27 06:07] LABS: ALKALINE PHOSPHATASE 123 U/L (38-126); ANION GAP 8.2 MEQ/L (5-15); BLOOD UREA NITROGEN 17 mg/dL (7-17); CHLORIDE 109 mmol/L (98-107); Calcium 8.7 mg/dL (8.4-10.2); Carbon Dioxide 24 mmol/L (22-30); Creatinine 1 0.55 mg/dL (0.52-1.04); EST GLOMERULAR FILTRATION RATE > 60.0 ML/MIN; Glucose 138 mg/dL (74-106); Potassium 3.6 mmol/L (3.5-5.1); SGOT/AST 54 U/L (14-36); SGPT/ALT 43 U/L (0-35); SODIUM 138 mmol/L (137-145); Total Protein 5.5 g/dL (6.3-8.2)
[2022-01-27] MEDS: Glucophage 500 MG PO SCH (07:35)
[2022-01-27] MEDS: PROTONIX 40 MG IV IV SCH ×2 (09:33→21:22)
[2022-01-27] MEDS: Klor Con PO SCH (09:36)
[2022-01-27] MEDS: TENORMIN 50 MG PO SCH (09:36)
[2022-01-27] MEDS: CHLORTHALIDONE PO SCH (09:36)
[2022-01-27] MEDS: Prozac 20 MG PO SCH (09:36)
[2022-01-27] MEDS: DECADRON 10MG INJ. IV SCH (09:36)
[2022-01-27] MEDS: ZOCOR 20MG PO SCH (09:36)
[2022-01-27] MEDS: celeBREX 100 MG PO SCH (09:36)
[2022-01-27] MEDS: NORCO 5/325 MG PO PRN (09:36)
[2022-01-27] MEDS: Ativan 1 MG PO PRN ×2 (09:36→21:22)
[2022-01-27] MEDS: Pepcid 20 MG VIAL IV SCH ×2 (09:41→21:22)
--- NOTE | 2022-01-27 09:52 | CONS ---
CONSULT DATE: 01/26/2022 HISTORY: The patient is a 66-year-old female here with COVID infection. PAST MEDICAL HISTORY: Hyperlipidemia. She has diabetes and hypertension. She has COVID. Fibromyalgia. She was told she has cirrhosis. She also had some depression in the past. PAST SURGICAL HISTORY: Tubal in the past. Knee surgery. Heel surgery. Cholecystectomy in the past. HOME MEDICATIONS: Atorvastatin, Celebrex, fluoxetine, Metformin, tramadol, Abilify, budesonide, potassium chloride, Tylenol as well as atenolol/Chlorthalidone. ALLERGIES: PENICILLIN. FAMILY HISTORY: Negative in regards to this problem. SOCIAL HISTORY: No smoking. No alcohol abuse. REVIEW OF SYSTEMS: Fourteen systems reviewed pertinent for COVID infection. She had some vague mid to upper abdominal discomfort. Pertinent for as noted above per admission assessment. No current chest pain. She is positive for COVID infection. LAB DATA AND TESTS: She had some fluid distended small bowel with some wall thickening consistent with enteritis according to the radiologist. She had some cirrhosis, splenomegaly, large pleural vein, degenerative change in spine. Her creatinine was 0.44. Bilirubin 0.60. Lipase is normal. White count 4, hemoglobin 9.7 and was 11 when she came in, PLT count 108,000. Clostridium difficile was negative. She was occult positive apparently. PHYSICAL EXAMINATION: GENERAL: No acute distress. HEENT: Sclera nonicteric. No gross icterus currently. Trachea midline. CHEST: Equal excursion, nonlabored breathing currently. CVS: Regular rhythm and pulse. ABDOMEN: Soft. She had some mild tenderness mid abdomen to epigastrium. No peritoneal signs. EXTREMITIES: No significant edema. NEURO: Alert, moving extremities symmetrically. PSYCH: Appropriate mood and affect. IMPRESSION: Anemia, fecal occult positive patient and some darker stools. Could have anything from gastritis, peptic ulcer disease. She does have some thickening of the small bowel that could be from enteritis from her COVID infection. I do not feel she needs emergent surgical intervention. I do feel she would benefit if her INR is okay as she was told she has cirrhosis per the CT scan. If the INR is okay, could proceed with upper endoscopy tomorrow. If her INR is elevated that will need to be corrected before considering endoscopy. General risk of bleeding or infection, risk of bowel injury or perforation but not limited to, consent obtained. If she has gastritis or peptic ulcer disease will treat that with considering holding her steroids and increasing her proton pump inhibitor. If upper endoscopy is unremarkable then could consider colonoscopy, could do as an outpatient when she recovers from COVID if her hemoglobin remains stable but abdominal prep with the current COVID infection is not necessary at the moment. She understands the plan, will see about doing upper endoscopy tomorrow afternoon or evening pending if her INR is okay or not. If her INR is elevated then will need to be corrected with plasma or other methods prior to endoscopy whether here or elsewhere.
[2022-01-27] MEDS ORDERED: ATENOLOL PO SCH (10:00)
[2022-01-27] MEDS ORDERED: NON-FORMULARY ITEM (Potassium Chloride [Potassium Chloride] 20 MEQ Tab.Er.Prt) PO SCH (10:00)
[2022-01-27] MEDS ORDERED: REMDESIVIR 100 MG in Sodium Chloride 100ML MINI-BAG PLUS 100 ML IV SCH (10:00)
[2022-01-27] MEDS ORDERED: NON-FORMULARY ITEM (Atorvastatin Calcium [Atorvastatin Calcium] 20 MG Tablet) PO SCH (10:00)
[2022-01-27] MEDS ORDERED: NON-FORMULARY ITEM (Celecoxib [Celebrex] 200 MG Capsule) PO SCH (10:00)
[2022-01-27] MEDS ORDERED: BUDESONIDE 3 MG PO SCH (10:00)
[2022-01-27] MEDS ORDERED: CHLORTHALIDONE PO SCH (10:00)
[2022-01-27 10:42] LABS: ABO TYPING B
[2022-01-27 10:43] LABS: Antibody Screen NEGATIVE (NEGATIVE); RH TYPING NEGATIVE
[2022-01-27 10:44] LABS: CROSS MATCH (PRBC) COMPATIBLE (COMPATIBLE)
[2022-01-27] MEDS: Lomotil PO PRN (12:35)
[2022-01-27] MEDS ORDERED: DIPRIVAN 200 MG/20 ML IV ONE (17:28)
[2022-01-27 20:01] LABS: Hematocrit 31.1 % (35-47)
[2022-01-27 20:06] LABS: Hemoglobin 10.2 g/dL (12.0-16.0)
[2022-01-27] MEDS: Abilify 10 MG PO SCH (21:22)
[2022-01-27] MEDS: TYLENOL 325 MG PO SCH (21:22)
[2022-01-28 05:23] LABS: Hematocrit 30.6 % (35-47); Hemoglobin 10.3 g/dL (12.0-16.0); Mean Cell Volume 86.7 fL (78-100); Mean Corpuscular Hemoglobin 29.2 pg (26-32); Mean Corpuscular Hgb Concent. 33.7 g/dL (32-36); Mean Platelet Volume 10.5 fL (7.5-11.0); Platelet Count 106 x10^3/uL (150-450); Red Blood Count 3.53 x10^6/uL (4.1-5.4); Red Cell Distribution Width 15.9 % (11.5-14.0); White Blood Count 4.8 x10^3/uL (4.0-10.5)
[2022-01-28 05:50] LABS: ALBUMIN 2.7 g/dL (3.5-5.0); ALKALINE PHOSPHATASE 121 U/L (38-126); ANION GAP 5.7 MEQ/L (5-15); BLOOD UREA NITROGEN 13 mg/dL (7-17); CHLORIDE 109 mmol/L (98-107); Calcium 8.8 mg/dL (8.4-10.2); Carbon Dioxide 25 mmol/L (22-30); Creatinine 1 0.52 mg/dL (0.52-1.04); EST GLOMERULAR FILTRATION RATE > 60.0 ML/MIN; Glucose 127 mg/dL (74-106); Potassium 3.5 mmol/L (3.5-5.1); SGOT/AST 69 U/L (14-36); SGPT/ALT 48 U/L (0-35); SODIUM 136 mmol/L (137-145); Total Protein 5.4 g/dL (6.3-8.2)
[2022-01-28] MEDS: Lomotil PO PRN ×2 (07:29→09:30)
[2022-01-28] MEDS: Ativan 1 MG PO PRN (07:29)
[2022-01-28] MEDS ORDERED: Lactated Ringers 1,000 ML IV SCH (07:30)
[2022-01-28 07:54] VITALS: O2SAT 100
[2022-01-28] MEDS: Glucophage 500 MG PO SCH ×2 (08:01→09:24)
--- NOTE | 2022-01-28 08:46 | OP ---
SURGERY DATE/TIME: 01/27/2022 4068 PREOPERATIVE DIAGNOSIS: History of GI bleed unclear etiology. POSTOPERATIVE DIAGNOSES: 1) Esophageal varices. No active bleeding. 2) Erosive gastritis. No active bleeding. PROCEDURES: EGD with cold biopsy of antrum for Helicobacter pylori. SURGEON: Dr. Vic Strange. ANESTHESIA: MAC. ESTIMATED BLOOD LOSS: Minimal. INDICATIONS: As noted above. Risks and benefits explained in detail and not limited to and consent obtained. DESCRIPTION OF PROCEDURE AND FINDINGS: The patient is taken to the operating room. MAC anesthesia introduced. After official time out and no disagreement with planned procedure, a bite block positioned. Video gastroscope passed down the esophagus through the patent pylorus to the third portion of the duodenum. Third, second, first portion of duodenum no signs of any obvious ulcers. No signs of any active fresh or old blood. Scope pulled back into the stomach. She had some erosive gastritis. There was no visible evidence of any big ulcer at this time. No signs of any fresh or old blood currently. Cold biopsy taken to evaluate for Helicobacter pylori. On retroflex gastroesophageal junction seemed to be fairly tight around the scope but the stomach was not distending maximally. There did not appear to be visible evidence endoscopically of any large hiatal hernia at this juncture. The scope is straightened. Gastroesophageal junction about 37-38 cm. Z-line was fairly crisp. The patient did have esophageal varices. There was no active bleeding currently. It was felt this did not warrant any biopsy to risk creating bleeding. There were no signs of any obvious masses. The scope is withdrawn. The patient tolerated the procedure well. There were no immediate complications. I will see if there is family in the waiting area.
[2022-01-28] MEDS: Klor Con PO SCH (09:24)
[2022-01-28] MEDS: Prozac 20 MG PO SCH (09:24)
[2022-01-28] MEDS: ZOCOR 20MG PO SCH (09:24)
[2022-01-28] MEDS: CHLORTHALIDONE PO SCH (09:25)
[2022-01-28] MEDS: TENORMIN 50 MG PO SCH (09:25)
[2022-01-28] MEDS: NORCO 5/325 MG PO PRN (09:25)
[2022-01-28] MEDS: Pepcid 20 MG VIAL IV SCH (09:40)
[2022-01-28] MEDS: PROTONIX 40 MG IV IV SCH (09:40)
[2022-01-28] MEDS: DECADRON 10MG INJ. IV SCH (09:51)
[2022-01-28 12:02] VITALS: BP 138/63; PULSE 83
== END 2022-01-28 13:30 | disposition home or self-care (01) | DRG 377 ==
LOC: ED 18:33 → MED SURG 01-26 04:42 → OBSVTOIN 01-26 13:18
PROVIDERS: ADMIT Family Medicine; ATTEND Family Medicine
PROC: 0DD58ZX Extraction of Esophagus, Via Natural or Artificial Opening Endoscopic, Diagnostic (ICD-10-PCS; principal; 2022-01-27)
DX: K92.1 Melena (principal); U07.1 COVID-19; R77.8 Other specified abnormalities of plasma proteins; I85.00 Esophageal varices without bleeding; K29.60 Other gastritis without bleeding; R10.13 Epigastric pain; R50.9 Fever, unspecified; I10 Essential (primary) hypertension; E78.5 Hyperlipidemia, unspecified; E11.9 Type 2 diabetes mellitus without complications; K74.60 Unspecified cirrhosis of liver; D64.9 Anemia, unspecified; Z79.899 Other long term (current) drug therapy; Z20.828 Contact with and (suspected) exposure to other viral communicable diseases; Z87.19 Personal history of other diseases of the digestive system
CPT/HCPCS: 00731; 0241U; 36000; 36415; 36430; 43239; 71045; 71260; 74177; 80053; 81015; 82150; 82947; 83036; 83605; 83690; 83880; 84484; 85014; 85018; 85025; 85027; 85379; 85610; 86850; 86900; 86901; 86922; 87493; 88342; 93005; 94762; 96360; 96374; 96375; 96376; 99285; G0328; P9016; 82274; 88305; J1100; J1817; J2405; J2704; J3010; A9270-GY

== ENCOUNTER 2022-03-15 09:37 | Day surgery (SDC) | payer MEDICARE ==
--- NOTE | 2022-03-15 08:57 | HP ---
DATE OF SURGERY: 03/15/2022 HISTORY OF PRESENT ILLNESS: The patient is a 66-year-old with no bloody stools, had some abdominal aches and pains. She had upper endoscopy without obvious major finding to account for her symptoms. Given her history of anemia and history of polyps, history of abdominal aches, she will benefit from colonoscopy for further evaluation. PAST MEDICAL HISTORY: Heart disease, liver disease, fibromyalgia. The patient does have history of varices and erosive gastritis in the past but no active bleeding at the time. PAST SURGICAL HISTORY: Cholecystectomy. Knee surgery. Hysterectomy. Tubal in the past. Heel surgery. Tonsillectomy. Endoscopy in the past. MEDICATIONS: Fluoxetine, Abilify, tramadol, Celebrex, potassium chloride, atenolol, Budesonide, atorvastatin, Metformin, vitamin E, Centrum Women, Tylenol as well as milk thistle. ALLERGIES: PENICILLIN. FAMILY HISTORY: Cancer, heart disease. SOCIAL HISTORY: No smoking or alcohol abuse. REVIEW OF SYSTEMS: Fourteen systems reviewed. No chest pain or palpitations. Other systems negative or noncontributory as above and per preadmission questionnaire. PHYSICAL EXAMINATION: GENERAL: No acute distress. HEENT: Sclerae nonicteric. NECK: No JVD. CHEST: Equal excursion, nonlabored breathing. CVS: Regular rate and rhythm. ABDOMEN: Soft. EXTREMITIES: No significant edema. NEURO: Alert, oriented, moving extremities symmetrically. RECTAL: Deferred timed to endoscopy exam. PSYCH: Appropriate mood and affect. IMPRESSION: History of anemia, history of polyps, history of some vague abdominal aches. She did not have any obvious major bleeding source on the upper endoscopy in the past. It is felt she would benefit from colonoscopy for further evaluation. General risk of bleeding or infection, risk of bowel injury or perforation possibly requiring further procedure, risk of missed or nondiagnosis or incomplete exam possibly requiring barium enema, other studies or procedures, general risk of anesthesia or sedation, risk of bowel prep or sedation but not limited to, consent obtained.
[2022-03-15] MEDS ORDERED: Lactated Ringers 1,000 ML IV SCH (10:00)
[2022-03-15] MEDS ORDERED: Lactated Ringers 1,000 ML IV ONE ×2 (10:01→13:32)
[2022-03-15] MEDS ORDERED: DIPRIVAN 200 MG/20 ML IV ONE ×3 (12:58→13:27)
[2022-03-15] MEDS ORDERED: Xylocaine-Mpf 2% 5 Ml Vial ONE (12:58)
[2022-03-15 14:49] VITALS: O2SAT 99
[2022-03-15 14:55] VITALS: BP 132/78; PULSE 87
--- NOTE | 2022-03-16 07:56 | OP ---
SURGERY DATE/TIME: 03/15/2022 1303 PREOPERATIVE DIAGNOSIS: History of anemia, history of abdominal pain, history of polyps, need for colonoscopy. POSTOPERATIVE DIAGNOSES: 1) ASA Class III. 2) Withdrawal time approximately 12 minutes. 3) Fair but limited bowel prep especially right colon. 4) Few diverticula. 5) Polyps transverse colon, sigmoid colon and rectum. 6) Slightly prominent ileocecal valve. PROCEDURES: 1) Colonoscopy to cecum. 2) Cold biopsy of prominent ileocecal valve. 3) Hot biopsy polypectomy of transverse colon polyps x2. 4) Hot biopsy polypectomy of sigmoid colon polyps x2. 5) Hot biopsy polypectomy of rectal polyps x2. 6) Biopsy of patchy inflammation in the transverse colon. SURGEON: Dr. Vic Strange. ANESTHESIA: MAC. ESTIMATED BLOOD LOSS: Minimal. INDICATIONS: As noted above. Risks and benefits explained in detail but not limited to and consent obtained. DESCRIPTION OF PROCEDURE AND FINDINGS: The patient is taken to the endoscopy room. MAC anesthesia induced. After official time out and no disagreement with planned procedure, digital rectal exam did not reveal any rectal masses. Video colonoscope inserted and passed up through the slightly tortuous sigmoid, descending, transverse and ascending colon. Prep overall was only fair, fair to limited in the right colon. With the external pressure the scope was able to reach the cecum. There was a prominent ileocecal valve. The scope would not easily go up into the ileum. Cold biopsies are taken from the ileocecal valve. Otherwise the scope is slowly and carefully withdrawn over the next 12 minutes. Stopping in the inflammation to biopsy. Otherwise there were a couple of polyps in the transverse colon removed with hot biopsy polypectomy, a couple polyps in the sigmoid colon removed with hot biopsy polypectomy and a couple polyps in the rectum removed with hot biopsy polypectomy. The patient was a little bit raw and oozing but after watching the sites appeared to have adequate hemostasis. The family was instructed to avoid any blood thinners, NSAID's, aspirin or any other blood thinners postoperatively for at least a week. The scope was then withdrawn. There was some diverticulosis in the left colon, small diverticula. No signs of any luca macroscopic areas of colitis just one small patchy inflammation versus prep irritation. The patient tolerated the procedure well. There were no immediate complications.
== END 2022-03-15 14:45 | disposition home or self-care (01) ==
LOC: SDC 09:37
PROVIDERS: ATTEND Surgery
DX: Z09 Encounter for follow-up examination after completed treatment for conditions other than malignant neoplasm (principal); Z86.010 Personal history of colon polyps; D12.5 Benign neoplasm of sigmoid colon; D12.3 Benign neoplasm of transverse colon; Z86.2 Personal history of diseases of the blood and blood-forming organs and certain disorders involving the immune mechanism; Z80.9 Family history of malignant neoplasm, unspecified; K57.30 Diverticulosis of large intestine without perforation or abscess without bleeding; K62.1 Rectal polyp; E11.9 Type 2 diabetes mellitus without complications
CPT/HCPCS: 82947; J2704

== ENCOUNTER 2022-04-07 18:11 | Emergency (ER) | payer MEDICARE ==
[2022-04-07] MEDS ORDERED: TORAdol 30 mg Injection ONE (18:28)
[2022-04-07] MEDS: TORAdol 30 mg Injection IM ONE (18:29)
--- NOTE | 2022-04-07 19:21 | ERPHSYRPT ---
- History of Present Illness Source: patient Exam Limitations: no limitations Patient Subjective Stated Complaint: PT states "I tripped over the cat and hit head." Triage Nursing Assessment: Pt presented alert and oriented X 3, skin pwd. Pt ambulates with an upright steady gait, able to speak in clear full sentences. Pt has large hematoma noted to left forehead, tenderness noted to left ribs. Physician History: 66 yo wf tripped over her cat at home before arrival injuring her L scalp/glabella/L periorbital area/L lateral thorax. She denies LOC, and pain is moderate. Pt denies C, T, and L-spine pain/abdominal pain/UE pain/LE pain. Occurred: just prior to arrival Injuries/Pain Location: head, face Loss of Consciousness: no loss of consciousness Quality: throbbing Severity of Pain-Max: severe Severity of Pain-Current: moderate Modifying Factors: Improves With: movement Associated Symptoms (Fall): denies symptoms Allergies/Adverse Reactions: Penicillins Allergy (Unknown, Verified 03/15/22 09:57) Home Medications: Atorvastatin Calcium 20 mg PO DAILY 04/20/20 [History] Celecoxib [Celebrex] 200 mg PO DAILY 04/20/20 [History] Fluoxetine HCl 40 mg PO DAILY 04/20/20 [History] Tramadol HCl 50 mg [Ultram 50 mg] 50 mg PO TIDPRN PRN 04/20/20 [History] Aripiprazole [Abilify] 2 mg PO HS 01/25/22 [History] Budesonide [Budesonide EC] 9 mg PO DAILY 01/25/22 [History] Potassium Chloride 20 meq PO DAILY 01/25/22 [History] Acetaminophen 325 mg [Tylenol 325 mg] 650 mg PO HS 01/26/22 [History] Atenolol/Chlorthalidone [Tenoretic 50 Tablet] 1 each PO DAILY 01/26/22 [History] Cholecalciferol (Vitamin D3) [Vitamin D3] 1 cap PO UD 03/01/22 [History] Milk Thistle 150 mg PO UD 03/01/22 [History] Multivitamin/Iron/Folic Acid [Centrum Women Tablet] 1 tab PO UD 03/01/22 [Histo ry] Vitamin E 1 tab PO UD 03/01/22 [History] Glipizide 5 mg [Glucotrol 5 MG] 5 mg PO BID 03/15/22 [History] Hx Tetanus, Diphtheria Vaccination/Date Given: Yes Hx Influenza Vaccination/Date Given: Yes Hx Pneumococcal Vaccination/Date Given: Yes Immunizations Up to Date: Yes Travel Risk - International Travel Have you traveled outside of the country in past 3 weeks: No - Coronavirus Screening Are you exhibiting any of the following symptoms?: No Close contact with a COVID-19 positive Pt in past 14-21 Days: No - Vaccine Status Have you recieved a Covid-19 vaccination: Yes [employer]: [place] - Vaccination Dates Date of 2cond Vaccination (if applicable): UNKNOWN - Review of Systems Constitutional: No Symptoms Eyes: No Symptoms Ears, Nose, & Throat: No Symptoms Respiratory: No Symptoms Cardiac: No Symptoms Abdominal/Gastrointestinal: No Symptoms Genitourinary Symptoms: No Symptoms Skin: No Symptoms Neurological: No Symptoms Psychological: No Symptoms Endocrine: No Symptoms Hematologic/Lymphatic: No Symptoms Immunological/Allergic: No Symptoms - Past Medical History Pertinent Past Medical History: Yes Neurological History: No Pertinent History ENT History: Cataracts Cardiac History: Hypertension Respiratory History: No Pertinent History Endocrine Medical History: Diabetes Type II, Liver Disease Musculoskeletal History: Arthritis, Fibromyalgia GI Medical History: Gallbladder Disease History: No Pertinent History Psycho-Social History: Depression Female Reproductive Disorders: No Pertinent History Other Medical History: fibro,liver disease?, - Past Surgical History Past Surgical History: Yes Neuro Surgical History: No Pertinent History Cardiac: No Pertinent History Respiratory: No Pertinent History Gastrointestinal: Cholecystectomy Genitourinary: No Pertinent History Musculoskeletal: Orthopedic Surgery Female Surgical History: Hysterectomy, Tubal Ligation Other Surgical History: knee, heel spur,colonoscopy - Social History Smoking Status: Never smoker Exposure to second hand smoke: Yes Drug Use: none Patient Lives Alone: No Significant Family History: no pertinent family hx - Nursing Vital Signs Nursing Vital Signs: Initial Vital Signs Temperature 96.8 F 04/07/22 18:19 Pulse Rate 76 04/07/22 18:19 Respiratory Rate 20 04/07/22 18:19 Blood Pressure 156/77 04/07/22 18:19 O2 Sat by Pulse Oximetry 97 04/07/22 18:19 Pain Scale Pain Intensity 6 Hypertensive - [place] Coma Score Best Eye Response ([place]): (4) open spontaneously Best Verbal Response ([place]): (5) oriented Best Motor Response ([place]): (6) obeys commands [place] Total: 15 - Physical Exam General Appearance: no apparent distress Head Injury: swelling (Large L glabellar-periorbital hematoma/Mod TTP) Eye Exam: PERRL/EOMI, eyes nml inspection ENT Exam: airway nml, No evidence of ENT injury, No dental injury, No clear fluid (ears), No clear fluid (nose) Neck Exam: supple, trachea midline, normal inspection (C-spine NTTP) Respiratory/Chest Exam: chest tenderness (L lateral thoracic TTP/Good BBS), normal breath sounds Cardiovascular Exam: normal heart sounds, regular rate/rhythm, normal peripheral pulses, No murmur Gastrointestinal Exam: soft, normal bowel sounds, tenderness Back Exam: normal inspection, normal range of motion, No CVA tenderness, No vertebral tenderness Extremity Exam: normal inspection, normal range of motion, capillary refill <3 sec, pelvis stable Peripheral Pulses: carotid (R): 2+, carotid (L): 2+ Neurologic Exam: alert, oriented x 3, 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, 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, normal mood/affect, nml cerebellar function, nml station & gait, sensation nml Skin Exam: normal color, warm, dry SpO2 Interpretation: normal SpO2: 97 O2 Delivery: Room Air - Course Nursing assessment & vital signs reviewed: Yes - CT Exams Chest CT Interpretation: Discussed w/radiologist (CT chest Old R rib fx/HH/cirrhosis) Maxillofacial Bones CT Interpretation: Discussed w/radiologist (CT face L frontal scalp hematoma, minimal R maxillary disease) Head CT Interpretation: Discussed w/radiologist (L frontal scalp hematoma) Ordered Tests: Active Orders 24 hr Category Date Time Status CHEST WITHOUT CONTRAST [CT] Stat Exams 04/07/22 18:24 Taken FACIAL BONES WO CONTRAST [CT] Stat Exams 04/07/22 18:24 Taken HEAD WITHOUT CONTRAST [CT] Stat Exams 04/07/22 18:24 Taken Medication Summary Discontinued Medications Generic Name Dose Route Start Last Admin Trade Name Freq PRN Reason Stop Dose Admin Hydrocodone Bitart/Acetaminophen 1 tablet 04/07/22 19:34 04/07/22 19:39 Hydrocodone/Acetamin 10-325 Mg Tablet PO 04/07/22 19:35 1 tablet STAT ONE Administration Hydrocodone Bitart/Acetaminophen 2 tab 04/07/22 20:22 04/07/22 20:24 Hydrocodone/Apap 5/325 1 Tab Tablet PO 04/07/22 20:23 2 tab SENT HOME W/ PATIENT ONE Administration Hydrocodone Bitart/Acetaminophen Confirm 04/07/22 20:24 Hydrocodone/Apap 5/325 1 Tab Tablet Administered 04/07/22 20:25 Dose 2 tab .ROUTE .STK-MED ONE Ketorolac Tromethamine 30 mg 04/07/22 18:25 04/07/22 18:29 Ketorolac Tromethamine 30 Mg/Ml Inj IM 04/07/22 18:26 30 mg STAT ONE Administration Ketorolac Tromethamine Confirm 04/07/22 18:28 Ketorolac Tromethamine 30 Mg/Ml Inj Administered 04/07/22 18:29 Dose 30 mg .ROUTE .STK-MED ONE - Progress Progress Note: 04/07/22 20:04 30mg IM Toradol w mild improvement in pain Norco10 po x1 04/07/22 21:02 Norco5 x2 take home Counseled pt/family regarding: diagnosis, need for follow-up, rad results - Departure Departure Disposition: Home Clinical Impression: Minor closed head injury, Forehead contusion, Chest wall contusion Condition: Stable Critical Care Time: No Referrals: DOCTOR,NO FAMILY [NON-STAFF PHY W/O PRIVILEGES] - Follow up/PCP as directed Instructions: Closed Head Injury (DC), Contusion (DC), Preventing Falls in Older Adults Additional Instructions: Ice to contused areas for 12-24 hours Pain meds as needed Follow up with your family MD for continued pain Return to ER for any new signs/symptoms Prescriptions: Hydrocodone/Acetaminophen [Hydrocodone-Acetamin 5-325 mg] 1 each PO Q4HPRN PRN #8 tablet MDD 4 tabs PRN Reason: Pain
[2022-04-07] MEDS: HYDROCODONE-ACETAMIN 10-325 MG PO ONE (19:39)
[2022-04-07 20:15] VITALS: BP 139/77; PULSE 75
[2022-04-07] MEDS ORDERED: NORCO 5/325 MG ONE (20:24)
[2022-04-07] MEDS: NORCO 5/325 MG PO ONE (20:24)
[2022-04-07 21:02] VITALS: O2SAT 97
--- NOTE | 2022-04-08 08:44 | XRAY ---
Indication: Left frontal knot following fall. Multiple contiguous axial images obtained through the head without contrast. Comparison: None Large left supraorbital/left frontal scalp hematoma. Age-appropriate global atrophy. No acute intracranial hemorrhage, abnormal extra-axial fluid collection, or mass effect. Fourth ventricle is midline without hydrocephalus. [place]-white matter differentiation preserved. Bony calvarium intact. Visualized paranasal sinuses and mastoid air cells are clear. Impression: Left supraorbital/left frontal scalp hematoma. No underlying fracture or acute intracranial abnormalities.
--- NOTE | 2022-04-08 08:46 | XRAY ---
Indication: Left frontal knot following fall. Multiple contiguous axial images obtained through the facial bones. Sagittal and coronal reformatted images obtained. Comparison: None Bilateral dental amalgams produces beam artifact. Large left supraorbital/left frontal scalp hematoma. No acute fracture, suspicious bony lesions, or radiopaque foreign body. Orbits including roof, way, and floors intact. Floor of right maxillary sinus demonstrates minimal mucosal thickening. Remaining paranasal sinuses and nasal passages are pneumatized and clear. Very minimal nasal septal deviation to the right. Remaining visualized noncontrasted soft tissues are unremarkable. Impression: Left supraorbital/left frontal scalp hematoma. Minimal right maxillary sinus disease. Remaining CT facial bones negative.
--- NOTE | 2022-04-08 08:50 | XRAY ---
Indication: Left anterior rib pain following fall. Multiple contiguous axial images obtained through the chest without contrast. Comparison: January 26, 2022 Lungs again demonstrates minimal bilateral dependent atelectasis. No suspicious pulmonary mass, infiltrate, effusion, or pneumothorax. Heart is not enlarged again with coronary calcifications. Aorta again mildly arteriosclerotic without aneurysm. No pathologic mediastinal lymphadenopathy. Stable small hiatal hernia. Bony thorax intact with old right 9 rib fracture and again minimal degenerative changes throughout the spine. No new acute fracture or suspicious bony lesions. Limited upper abdomen again demonstrates cirrhotic liver, massive 18.4 cm splenomegaly, and cholecystectomy clips. Impression: 1. Again small hiatal hernia, chronic bony findings, arteriosclerotic disease, cirrhosis, and splenomegaly. 2. Remaining CT chest without contrast exam is negative.
== END 2022-04-07 20:32 | disposition home or self-care (01) ==
LOC: ED 18:11
DX: S00.03XA Contusion of scalp, initial encounter (principal); S20.219A Contusion of unspecified front wall of thorax, initial encounter; W01.10XA Fall on same level from slipping, tripping and stumbling with subsequent striking against unspecified object, initial encounter; E11.9 Type 2 diabetes mellitus without complications; Z79.899 Other long term (current) drug therapy
CPT/HCPCS: 70450; 70486; 71250; 96372; 99283; J1885; A9270-GY

== ENCOUNTER 2022-08-02 22:57 | Emergency (ER) | payer MEDICARE ==
[2022-08-03] MEDS ORDERED: TORAdol 30 mg Injection IV ONE (00:24)
[2022-08-03] MEDS ORDERED: Sodium Chloride 0.9% 1000 ML 1,000 ML IV SCH (00:30)
[2022-08-03] MEDS ORDERED: TORAdol 30 mg Injection ONE (00:35)
[2022-08-03] MEDS ORDERED: Sodium Chloride 0.9% 1000 ML 1,000 ML ONE (00:36)
--- NOTE | 2022-08-03 00:40 | ERPHSYRPT ---
- History of Present Illness Time Seen by Provider: 08/03/22 00:43 Historian: patient Exam Limitations: no limitations Patient Subjective Stated Complaint: L lower abd pain, vomiting, low back pain Triage Nursing Assessment: pt ambulatory to bed by self, alert and orientedx3, pt restless during triage and wants to sit on side of cot d/t "It feels better" per patient, c/o L lower abd pain that radiates to the L lower back since 1800, pt has vomiting 5 times, denies diarrhea, pt has hx of cirrhosis Physician History: Patient is 66-year-old female presents to our ED for evaluation of left-sided flank pain. Pain started at approximately 6 PM. Patient was resting when pain started. Patient felt the OS she had to have a bowel movement however was unable to produce. Pain then began to radiate down to her left groin area. No history of kidney stones. Patient has a history of the same. No fever. Patient vomited 5 5 times prior to arrival. Patient admits to history of liver cirrhosis. No other complaints. No chest pain or shortness of breath. Patient voices no other complaints or concerns at this time. Portions of this note were created with voice recognition technology. There may be grammatical, spelling, punctuation or sound alike errors Timing/Duration: today Activities at Onset: none Quality: aching Abdominal Pain Onset Location: flank Pain Radiation: no radiation Severity of Pain-Max: moderate Severity of Pain-Current: mild Modifying Factors: Improves With: nothing Associated Symptoms: nausea, vomiting Previous symptoms: no prior history Allergies/Adverse Reactions: Penicillins Allergy (Unknown, Verified 08/03/22 00:01) Home Medications: Atorvastatin Calcium 20 mg PO DAILY 04/20/20 [History] Celecoxib [Celebrex] 200 mg PO DAILY 04/20/20 [History] Fluoxetine HCl 40 mg PO DAILY 04/20/20 [History] Tramadol HCl 50 mg [Ultram 50 mg] 50 mg PO TIDPRN PRN 04/20/20 [History] Aripiprazole [Abilify] 2 mg PO HS 01/25/22 [History] Budesonide [Budesonide EC] 9 mg PO DAILY 01/25/22 [History] Potassium Chloride 20 meq PO DAILY 01/25/22 [History] Acetaminophen 325 mg [Tylenol 325 mg] 650 mg PO HS 01/26/22 [History] Atenolol/Chlorthalidone [Tenoretic 50 Tablet] 1 each PO DAILY 01/26/22 [History] Cholecalciferol (Vitamin D3) [Vitamin D3] 1 cap PO UD 03/01/22 [History] Milk Thistle 150 mg PO UD 03/01/22 [History] Multivitamin/Iron/Folic Acid [Centrum Women Tablet] 1 tab PO UD 03/01/22 [History] Vitamin E 1 tab PO UD 03/01/22 [History] Glipizide 5 mg [Glucotrol 5 MG] 5 mg PO BID 03/15/22 [History] Hx Tetanus, Diphtheria Vaccination/Date Given: Yes Hx Influenza Vaccination/Date Given: Yes Hx Pneumococcal Vaccination/Date Given: Yes Travel Risk - International Travel Have you traveled outside of the country in past 3 weeks: No - Coronavirus Screening Are you exhibiting any of the following symptoms?: No Close contact with a COVID-19 positive Pt in past 14-21 Days: No - Vaccine Status Have you recieved a Covid-19 vaccination: Yes 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[employer] - Vaccination Dates Date of 2cond Vaccination (if applicable): UNKNOWN - Review of Systems Constitutional: No Symptoms, No Fever, No Chills Eyes: No Symptoms Ears, Nose, & Throat: No Symptoms Respiratory: No Symptoms, No Cough, No Dyspnea Cardiac: No Symptoms, No Chest Pain, No Edema, No Syncope Abdominal/Gastrointestinal: No Symptoms, No Abdominal Pain, No Nausea, No Vomiting, No Diarrhea Genitourinary Symptoms: No Symptoms, No Dysuria Musculoskeletal: No Symptoms, No Back Pain, No Neck Pain Skin: No Symptoms, No Rash Neurological: No Symptoms, No Dizziness, No Focal Weakness, No Sensory Changes Psychological: No Symptoms Endocrine: No Symptoms Hematologic/Lymphatic: No Symptoms Immunological/Allergic: No Symptoms All Other Systems: Reviewed and Negative - Past Medical History Pertinent Past Medical History: Yes Neurological History: No Pertinent History ENT History: Cataracts Cardiac History: High Cholesterol, Hypertension Respiratory History: No Pertinent History Endocrine Medical History: Diabetes Type II, Liver Disease Musculoskeletal History: Arthritis, Fibromyalgia GI Medical History: Gallbladder Disease History: No Pertinent History Psycho-Social History: Depression Female Reproductive Disorders: No Pertinent History Other Medical History: fibro, - Past Surgical History Past Surgical History: Yes Neuro Surgical History: No Pertinent History Cardiac: No Pertinent History Respiratory: No Pertinent History Gastrointestinal: Cholecystectomy Genitourinary: No Pertinent History Musculoskeletal: Orthopedic Surgery Female Surgical History: Hysterectomy, Tubal Ligation Other Surgical History: knee, heel spur,colonoscopy - Social History Smoking Status: Never smoker Exposure to second hand smoke: Yes Drug Use: none Patient Lives Alone: No Significant Family History: no pertinent family hx - Nursing Vital Signs Nursing Vital Signs: Initial Vital Signs Temperature 97.6 F 08/03/22 00:01 Pulse Rate 78 08/03/22 00:01 Respiratory Rate 18 08/03/22 00:01 Blood Pressure 152/64 08/03/22 00:01 O2 Sat by Pulse Oximetry 98 08/03/22 00:01 Pain Scale Pain Intensity 0 - Physical Exam General Appearance: no apparent distress, alert Eye Exam: PERRL/EOMI, eyes nml inspection Ears, Nose, Throat Exam: normal ENT inspection, pharynx normal, moist mucous membranes Neck Exam: normal inspection, non-tender, supple, full range of motion Respiratory Exam: normal breath sounds, lungs clear, airway intact, No respiratory distress Cardiovascular Exam: regular rate/rhythm, normal heart sounds, normal peripheral pulses Gastrointestinal/Abdomen Exam: soft, tenderness, No mass Back Exam: normal inspection, normal range of motion, No CVA tenderness, No vertebral tenderness Extremity Exam: normal inspection, normal range of motion, pelvis stable Neurologic Exam: alert, oriented x 3, cooperative, normal mood/affect, nml cerebellar function, sensation nml, No motor deficits Skin Exam: normal color, warm, dry Lymphatic Exam: No adenopathy SpO2 Interpretation: normal SpO2: 98 O2 Delivery: Room Air - Course Nursing assessment & vital signs reviewed: Yes - CT Exams Abdomen/Pelvis CT Interpretation: Tele-radiologist Report (Coronary artery calcifications, hepatic cirrhosis with portal hypertension and splenomegaly, left hydronephrosis, left kidney hyperdense cyst, bowel wall thickening of small bowel and colon) Ordered Tests: Active Orders 24 hr Category Date Time Status IV Insertion STAT Care 08/03/22 00:24 Active ABDOMEN AND PELVIS W/0 CONTRAS [CT] Stat Exams 08/03/22 00:25 Taken CBC W DIFF Stat Lab 08/03/22 00:35 Completed CMP Stat Lab 08/03/22 00:35 Completed LIPASE Stat Lab 08/03/22 00:35 Completed TROPONIN Q4H Lab 08/03/22 00:35 Completed TROPONIN Q4H Lab 08/03/22 04:30 Ordered TROPONIN Q4H Lab 08/03/22 08:30 Ordered UA W/RFX UR CULTURE Stat Lab 08/03/22 02:00 Completed Medication Summary Generic Name Dose Route Start Last Admin Trade Name Lion PRN Reason Stop Dose Admin Sodium Chloride 1,000 mls @ 100 mls/hr 08/03/22 00:30 08/03/22 00:40 Sodium Chloride 0.9% 1000 Ml IV 09/02/22 00:29 100 mls/hr .Q10H PADMINI Administration Discontinued Medications Generic Name Dose Route Start Last Admin Trade Name Lion PRN Reason Stop Dose Admin Ketorolac Tromethamine 30 mg 08/03/22 00:24 08/03/22 00:40 Ketorolac Tromethamine 30 Mg/Ml Inj IV 08/03/22 00:25 30 mg STAT ONE Administration Ketorolac Tromethamine Confirm 08/03/22 00:35 Ketorolac Tromethamine 30 Mg/Ml Inj Administered 08/03/22 00:36 Dose 30 mg .ROUTE .[employer] ONE Lab/Rad Data: Laboratory Result Diagrams 08/03/22 00:35 08/03/22 00:35 Laboratory Results 08/03/22 08/03/22 08/03/22 Range/Units 02:00 00:35 00:35 WBC (4.0-10.5) x10^3/uL RBC (4.1-5.4) x10^6/uL Hgb (12.0-16.0) g/dL Hct (35-47) % MCV (78-100) fL MCH (26-32) pg MCHC (32-36) g/dL RDW (11.5-14.0) % Plt Count (150-450) x10^3/uL MPV (7.5-11.0) fL Gran % (36.0-66.0) % Immature Gran % (Auto) (0.00-0.4) % Nucleat RBC Rel Count (0.00-0.1) % Eos # (Auto) (0-0.5) x10^3/uL Immature Gran # (Auto) (0.00-0.03) x10^3u/L Absolute Lymphs (auto) (1.0-4.6) x10^3/uL Absolute Monos (auto) (0.0-1.3) x10^3/uL Absolute Nucleated RBC (0.00-0.01) x10^3u/L Lymphocytes % (24.0-44.0) % Monocytes % (0.0-12.0) % Eosinophils % (0.00-5.0) % Basophils % (0.0-0.4) % Absolute Granulocytes (1.4-6.9) x10^3/uL Basophils # (0-0.4) x10^3/uL Sodium 139 (137-145) mmol/L Potassium 3.6 (3.5-5.1) mmol/L Chloride 105 (98-107) mmol/L Carbon Dioxide 27 (22-30) mmol/L Anion Gap 10.0 (5-15) MEQ/L BUN 15 (7-17) mg/dL Creatinine 0.70 (0.52-1.04) mg/dL Estimated GFR > 60.0 ML/MIN Glucose 177 H (74-106) mg/dL Calcium 9.6 (8.4-10.2) mg/dL Total Bilirubin 0.50 (0.2-1.3) mg/dL AST 68 H (14-36) U/L ALT 55 H (0-35) U/L Alkaline Phosphatase 196 H (38-126) U/L Troponin I < 0.012 (0.000-0.034) ng/mL Serum Total Protein 7.5 (6.3-8.2) g/dL Albumin 4.2 (3.5-5.0) g/dL Lipase 162 (23-300) U/L Urine Color Yellow (Yellow) Urine Appearance Clear (Clear) Urine pH 6.0 (4.6-8.0) Ur Specific [place] 1.020 (1.005-1.030) Urine Protein Negative (Negative) Urine Glucose (UA) Negative (Negative) mg/dL Urine Ketones Negative (Negative) Urine Blood Negative (Negative) Urine Nitrite Negative (Negative) Urine Bilirubin Negative (Negative) Urine Urobilinogen 1.0 A (0.2) mg/dL Ur Leukocyte Esterase Trace A (Negative) Urine Microscopic RBC 0-2 (0-5) /HPF Urine Microscopic WBC 0-2 (0-5) /HPF Ur Epithelial Cells Few (None Seen) /HPF Urine Bacteria Rare A (None Seen) /HPF Urine Culture Reflexed NO (NO) Slides for Path Review 08/03/22 Range/Units 00:35 WBC 3.1 L (4.0-10.5) x10^3/uL RBC 3.22 L (4.1-5.4) x10^6/uL Hgb 9.4 L (12.0-16.0) g/dL Hct 30.5 L (35-47) % MCV 94.7 (78-100) fL MCH 29.2 (26-32) pg MCHC 30.8 L (32-36) g/dL RDW 15.3 H (11.5-14.0) % Plt Count 87 L (150-450) x10^3/uL MPV 10.7 (7.5-11.0) fL Gran % 74.8 H (36.0-66.0) % Immature Gran % (Auto) 0.3 (0.00-0.4) % Nucleat RBC Rel Count 0.0 (0.00-0.1) % Eos # (Auto) 0.09 (0-0.5) x10^3/uL Immature Gran # (Auto) 0.01 (0.00-0.03) x10^3u/L Absolute Lymphs (auto) 0.45 L (1.0-4.6) x10^3/uL Absolute Monos (auto) 0.23 (0.0-1.3) x10^3/uL Absolute Nucleated RBC 0.00 (0.00-0.01) x10^3u/L Lymphocytes % 14.4 L (24.0-44.0) % Monocytes % 7.3 (0.0-12.0) % Eosinophils % 2.9 (0.00-5.0) % Basophils % 0.3 (0.0-0.4) % Absolute Granulocytes 2.34 (1.4-6.9) x10^3/uL Basophils # 0.01 (0-0.4) x10^3/uL Sodium (137-145) mmol/L Potassium (3.5-5.1) mmol/L Chloride (98-107) mmol/L Carbon Dioxide (22-30) mmol/L Anion Gap (5-15) MEQ/L BUN (7-17) mg/dL Creatinine (0.52-1.04) mg/dL Estimated GFR ML/MIN Glucose (74-106) mg/dL Calcium (8.4-10.2) mg/dL Total Bilirubin (0.2-1.3) mg/dL AST (14-36) U/L ALT (0-35) U/L Alkaline Phosphatase (38-126) U/L Troponin I (0.000-0.034) ng/mL Serum Total Protein (6.3-8.2) g/dL Albumin (3.5-5.0) g/dL Lipase (23-300) U/L Urine Color (Yellow) Urine Appearance (Clear) Urine pH (4.6-8.0) Ur Specific [place] (1.005-1.030) Urine Protein (Negative) Urine Glucose (UA) (Negative) mg/dL Urine Ketones (Negative) Urine Blood (Negative) Urine Nitrite (Negative) Urine Bilirubin (Negative) Urine Urobilinogen (0.2) mg/dL Ur Leukocyte Esterase (Negative) Urine Microscopic RBC (0-5) /HPF Urine Microscopic WBC (0-5) /HPF Ur Epithelial Cells (None Seen) /HPF Urine Bacteria (None Seen) /HPF Urine Culture Reflexed (NO) Slides for Path Review YES - Progress Progress: improved Progress Note: Patient reassessed. She is well. Work-up suggestive of a passed kidney stone. Patient is pain-free. Vital stable. No indication for further work-up. Will discharge home. Patient is 66-year-old female presents to our ED with acute onset left flank pain. Physical exam reveals left flank tenderness. Patient's complaint is acute in nature. Complexity of patient's complaint is moderate. Patient has a history of cirrhosis. This may be complicating patient's presentation. Test ordered including CT abdomen pelvis, CBC, CMP, lipase, troponin, urinalysis. Results of work-up were used for medical decision making. Patient received Toradol and IV fluids. Toradol resolved patient's pain. Patient currently pain-free. Patient now requesting discharge. Patient agrees to follow-up with primary care doctor within 48 hours for reevaluation. Level VM service provided was moderate. Complexity of problem addressed is moderate. Complexity of data reviewed and analyzed is moderate. Risk of complication and or risk of morbidity/mortality of patient management is low. No critical care time. 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 Time spent in discharge was approximately 10 minutes. Discharge diagnosis Include critical care time. Critical care time requires 1 the presence of a life or limb threatening condition, 2. Requiring a critical intervention to stabilize the patient, 3. And the time provided in care and documentation is greater than 30 minutes, not including procedures Portions of this note were created with voice recognition technology. There may be grammatical, spelling, punctuation or sound alike errors 08/03/22 03:12 Counseled pt/family regarding: lab results, diagnosis, need for follow-up, rad results Medical Desision Making - Diagnostic Testing Diagnostic Testing: Diagnostic tests were ordered,analyzed, and reviewed by me and used in my medical decision making for this patient. Radiologic studies (if ordered) were read by me initially then discussed with the radiologist . - Departure Departure Disposition: Home Clinical Impression: Leukopenia, Normocytic anemia, Thrombocytopenia, Hyperglycemia, Transaminitis, Elevated alkaline phosphatase level, Coronary artery calcification, Hepatic cirrhosis with portal hypertensi, Hydronephrosis, left, Left kidney hyperdense cyst, Follow-up thickening of small bowel, Flank pain Condition: Stable Critical Care Time: No Referrals: EDDIE BRIGHT DO [Primary Care Provider] - Follow up/PCP as directed Additional Instructions: Discharge/Care Plan LUPILLO SEAY was seen on 08/03/22 in the Emergency Room. The patient was counseled regarding Diagnosis,Lab results, Imaging studies, need for follow up and when to return to the Emergency Room. Prescriptions given: Discharge Note I have spoken with the patient and/or caregivers. I have explained the patient's condition, diagnosis and treatment plan based on the information available to me at this time. I have answered the patient's and/or caregiver's questions and addressed any concerns. The patient and/or caregivers have as good understanding of the patient's diagnosis, condition and treatment plan as can be expected at this point. The vital signs have been stable. The patient's condition is stable and appropriate for discharge from the emergency department. The patient will pursue further outpatient evaluation with the primary care physician or other designated or consulting physician as outlined in the discharge instructions. The patient and/or caregivers are agreeable to this plan of care and follow-up instructions have been explained in detail. The patient and/or caregivers have received these instruction. The patient/and or caregivers are aware that any significant change in condition or worsening of symptoms should prompt an immediate return to this or the closest emergency department or call 911.
[2022-08-03 00:42] LABS: Absolute Neutrophil Ct (ANC) 2.34 x10^3/uL (1.4-6.9); BASOPHIL % 0.3 % (0.0-0.4); Basophil (Absolute #) 0.01 x10^3/uL (0-0.4); Eosinophil % 2.9 % (0.00-5.0); Eosinophil (Absolute #) 0.09 x10^3/uL (0-0.5); Hematocrit 30.5 % (35-47); Hemoglobin 9.4 g/dL (12.0-16.0); IMMATURE GRAN # 0.01 x10^3u/L (0.00-0.03); IMMATURE GRAN % 0.3 % (0.00-0.4); Lymphocyte (Absolute #) 0.45 x10^3/uL (1.0-4.6); Lymphocytes % 14.4 % (24.0-44.0); Mean Cell Volume 94.7 fL (78-100); Mean Corpuscular Hemoglobin 29.2 pg (26-32); Mean Corpuscular Hgb Concent. 30.8 g/dL (32-36); Mean Platelet Volume 10.7 fL (7.5-11.0); Monocyte (Absolute #) 0.23 x10^3/uL (0.0-1.3); Monocytes % 7.3 % (0.0-12.0); Neutrophil % 74.8 % (36.0-66.0); Platelet Count 87 x10^3/uL (150-450); Red Blood Count 3.22 x10^6/uL (4.1-5.4); Red Cell Distribution Width 15.3 % (11.5-14.0); White Blood Count 3.1 x10^3/uL (4.0-10.5)
[2022-08-03 00:55] LABS: ALBUMIN 4.2 g/dL (3.5-5.0); ALKALINE PHOSPHATASE 196 U/L (38-126); BLOOD UREA NITROGEN 15 mg/dL (7-17); CHLORIDE 105 mmol/L (98-107); Calcium 9.6 mg/dL (8.4-10.2); Carbon Dioxide 27 mmol/L (22-30); EST GLOMERULAR FILTRATION RATE > 60.0 ML/MIN; Glucose 177 mg/dL (74-106); LIPASE 162 U/L (23-300); Potassium 3.6 mmol/L (3.5-5.1); SGOT/AST 68 U/L (14-36); SGPT/ALT 55 U/L (0-35); SODIUM 139 mmol/L (137-145); Total Protein 7.5 g/dL (6.3-8.2)
[2022-08-03 02:15] LABS: Appearance Clear (Clear); Bilirubin Negative (Negative); Blood Negative (Negative); Glucose, Urine Negative (Negative); Ketones Negative (Negative); Leukocyte Esterase Trace (Negative); Nitrite Negative (Negative); Protein,Urine Dip Negative (Negative)
[2022-08-03 02:26] LABS: Bacteria Rare /HPF (None Seen); Epithelial Cells Few /HPF (None Seen); RBC 0-2 /HPF (0-5); WBC 0-2 /HPF (0-5)
[2022-08-03 02:27] LABS: ADD URINE CULTURE? NO (NO)
[2022-08-03 03:03] LABS: Slide Review 1 YES
[2022-08-03 03:05] VITALS: O2SAT 98
[2022-08-03 03:08] VITALS: BP 111/61; PULSE 68
--- NOTE | 2022-08-03 08:55 | XRAY ---
Indication: Abdomen pain and vomiting. Multiple contiguous axial images obtained through the abdomen and pelvis without contrast. Comparison: January 26, 2022 Lung bases clear. Heart not enlarged. Again small hiatal hernia. Noncontrasted stomach and bowel loops nonobstructed. Several small bowel and cecum now demonstrates mild circumferential wall thickening including ileocecal junction with minimal pericecal stranding favoring Crohn's disease versus enterocolitis. Left kidney is now mildly edematous with minimal hydronephrosis and minimal hydroureter without obvious calculus. Findings either from recent passage of calculus versus infection. Previous small left renal cortical cyst not seen on noncontrast exam. There is 9 mm left mid renal and right upper renal hyperdense cysts not seen on previous contrasted exam. Again 20.4 cm cirrhotic hepatomegaly, 18.4 cm splenomegaly, and prominent main portal vein up to 2.2 cm. No free fluid/air. Again incidental cholecystectomy and hysterectomy. Remaining pancreas, adrenal glands, and urinary bladder are unremarkable for noncontrast exam. Again mild scattered aortoiliac calcifications without AAA. Osseous structures intact again with mild degenerative spondylosis and minimal grade 1 L4 listhesis. Impression: 1. New mild circumferential wall thickening small bowel, ileocecal junction, and cecum with minimal pericecal stranding. Rule out Crohn's disease versus enterocolitis. 2. New left renal edema with minimal hydronephrosis and hydroureter. Rule out recent passage of calculus versus infection. 3. Bilateral renal hyperdense cysts obscured on previous contrasted exam. 4. Again chronic findings including small hiatal hernia, cirrhotic hepatomegaly, splenomegaly, enlarged main portal vein, arteriosclerotic disease, and chronic bony findings. Comment: Preliminary interpretation made by [facility]. No critical discrepancy.
== END 2022-08-03 03:13 | disposition home or self-care (01) ==
LOC: ED 22:57
DX: K74.60 Unspecified cirrhosis of liver (principal); K76.6 Portal hypertension; N13.30 Unspecified hydronephrosis; N28.1 Cyst of kidney, acquired; E11.65 Type 2 diabetes mellitus with hyperglycemia; D72.819 Decreased white blood cell count, unspecified; D64.9 Anemia, unspecified; D69.6 Thrombocytopenia, unspecified; R74.01 Elevation of levels of liver transaminase levels; R74.8 Abnormal levels of other serum enzymes; I25.10 Atherosclerotic heart disease of native coronary artery without angina pectoris; R10.9 Unspecified abdominal pain; R11.2 Nausea with vomiting, unspecified; E78.5 Hyperlipidemia, unspecified; I10 Essential (primary) hypertension; Z79.84 Long term (current) use of oral hypoglycemic drugs; Z79.899 Other long term (current) drug therapy
CPT/HCPCS: 36000; 36415; 74176; 80053; 81001; 83690; 84484; 85025; 96374; 99284; J1885

== ENCOUNTER 2023-09-21 16:27 | Emergency (ER) | payer MEDICARE ==
[2023-09-21 16:54] VITALS: TEMP 96.9
[2023-09-21 16:55] LABS: Appearance Clear (Clear); Bacteria Many /HPF (None Seen); Bilirubin Negative (Negative); Blood Negative (Negative); Epithelial Cells None Seen /HPF (None Seen); Glucose, Urine Negative (Negative); Hyaline Casts NONE SEEN /LPF (0-2); Ketones Negative (Negative); Leukocyte Esterase Negative (Negative); Nitrite Positive (Negative); Protein,Urine Dip Negative (Negative); RBC 0-2 /HPF (0-5); Urobilinogen 0.2 mg/dL (0.2); WBC 0-2 /HPF (0-5)
[2023-09-21] MEDS ORDERED: PROTONIX 40 MG IV IV ONE (17:11)
[2023-09-21] MEDS ORDERED: Sodium Chloride 0.9% 1000 ML 1,000 ML ONE (17:11)
[2023-09-21] MEDS ORDERED: Sodium Chloride 0.9% 500 ML 500 ML IV ONE (17:11)
[2023-09-21 17:14] LABS: Absolute Neutrophil Ct (ANC) 4.36 x10^3/uL (1.4-6.9); BASOPHIL % 0.5 % (0.0-0.4); Basophil (Absolute #) 0.03 x10^3/uL (0-0.4); Eosinophil % 2.4 % (0.00-5.0); Eosinophil (Absolute #) 0.14 x10^3/uL (0-0.5); Hematocrit 28.7 % (35-47); Hemoglobin 9.7 g/dL (12.0-16.0); IMMATURE GRAN # 0.03 x10^3u/L (0.00-0.03); IMMATURE GRAN % 0.5 % (0.00-0.4); Lymphocyte (Absolute #) 0.88 x10^3/uL (1.0-4.6); Lymphocytes % 14.8 % (24.0-44.0); Mean Cell Volume 91.4 fL (78-100); Mean Corpuscular Hemoglobin 30.9 pg (26-32); Mean Corpuscular Hgb Concent. 33.8 g/dL (32-36); Mean Platelet Volume 11.8 fL (7.5-11.0); Monocyte (Absolute #) 0.49 x10^3/uL (0.0-1.3); Monocytes % 8.3 % (0.0-12.0); Neutrophil % 73.5 % (36.0-66.0); Platelet Count 101 x10^3/uL (150-450); Red Blood Count 3.14 x10^6/uL (4.1-5.4); Red Cell Distribution Width 13.9 % (11.5-14.0); White Blood Count 5.9 x10^3/uL (4.0-10.5)
[2023-09-21] MEDS: PROTONIX 40 MG IV IV ONE (17:22)
[2023-09-21] MEDS: PROTONIX 40 MG IV*** 80 MG in Sodium Chloride 0.9% 500 ML 500 ML IV SCH (17:22)
[2023-09-21 17:26] LABS: ADD URINE CULTURE? ORDERED SEPARATELY (NO)
[2023-09-21 17:26] LABS: ALBUMIN 3.1 g/dL (3.5-5.0); ANION GAP 10.9 MEQ/L (5-15); BILIRUBIN,TOTAL 0.8 mg/dL (0.2-1.3); Calcium 9.1 mg/dL (8.4-10.2); Creatinine 1 0.65 mg/dL (0.52-1.04); EST GLOMERULAR FILTRATION RATE 95.3 ML/MIN; INR 1.22 (0.8-3.0); PROTIME 13.1 SECONDS (9.4-12.5); Potassium 3.5 mmol/L (3.5-5.1); Total Protein 5.8 g/dL (6.3-8.2)
[2023-09-21] MEDS ORDERED: SANDOSTATIN 50MCG/ML IV SCH (17:30)
[2023-09-21] MEDS: Sodium Chloride 0.9% 1000 ML 1,000 ML IV STA (17:30)
[2023-09-21] MEDS: SANDOSTATIN 50MCG/ML IV STA (17:31)
[2023-09-21] MEDS ORDERED: Zofran 4 MG/2 ML VIAL ONE (17:35)
--- NOTE | 2023-09-21 17:35 | ERPHSYRPT ---
- History of Present Illness Time Seen by Provider: 09/21/23 16:34 Historian: patient Exam Limitations: no limitations Patient Subjective Stated Complaint: pt was throwing up blood with large clots Triage Nursing Assessment: Pt was brought to the ER by EMS, vitals wnl, denies pain at this time due to getting fentanyl in the ambulance, pulses normal, skin sallow/cold/dry, hx of non alcoholic cirrohsis, pt was near syncope when she was sat up to get her shirt off and had to be laid back down immediately, abdomen is soft and tender in the RUQ, pt states that she feels she needs to have a bowel movement, bowel sounds heard in all 4 quadrants, pt denies being SOB Physician History: 67-year-old female with history of nonalcoholic cirrhosis, diabetes mellitus, hypertension, anxiety presented in the ER with upper abdominal pain along with multiple episodes of nonprojectile, nonbilious vomiting with hematemesis conta ining mix of bright red and dark blood and few blood clots witnessed by EMS on their arrival. Patient reports she started to have upper abdominal pain this morning followed by nausea and vomiting. Patient has no known history of esophageal varices. Denies any history of GI bleed in the past. Does report having retrosternal burning sensation after vomiting. Not taking any blood thinners. Patient is given Zofran and fentanyl prior to arrival and she is feeling better. On arrival blood pressure is in low 100s. Allergies/Adverse Reactions: Penicillins Allergy (Unknown, Verified 09/21/23 16:54) Home Medications: Atorvastatin Calcium 20 mg PO DAILY 04/20/20 [History] Celecoxib [Celebrex] 200 mg PO DAILY 04/20/20 [History] Fluoxetine HCl 40 mg PO DAILY 04/20/20 [History] Tramadol HCl 50 mg [Ultram 50 mg] 50 mg PO TIDPRN PRN 04/20/20 [History] Aripiprazole [Abilify] 2 mg PO HS 01/25/22 [History] Potassium Chloride 20 meq PO DAILY 01/25/22 [History] Atenolol/Chlorthalidone [Tenoretic 50 Tablet] 50 mg PO DAILY 01/26/22 [History] Milk Thistle 175 mg PO UD 03/01/22 [History] Multivitamin/Iron/Folic Acid [Centrum Women Tablet] 1 tab PO UD 03/01/22 [History] ALPRAZolam 0.25 MG [xanAX 0.25 MG] 0.25 mg PO UD PRN 09/21/23 [History] Gabapentin [Neurontin ] 100 mg PO DAILY 09/21/23 [History] Sitagliptin Phosphate 50 MG [Januvia 50 MG] 100 mg PO DAILY 09/21/23 [History] Tizanidine HCl [Zanaflex] 2 - 4 mg PO DAILY 09/21/23 [History] Hx Tetanus, Diphtheria Vaccination/Date Given: Yes Hx Influenza Vaccination/Date Given: Yes Hx Pneumococcal Vaccination/Date Given: Yes Travel Risk - International Travel Have you traveled outside of the country in past 3 weeks: No - Emerging Infectious Disease Are you exhibiting symptoms associated with any current EIDs: No - Review of Systems Constitutional: Fatigue, Weakness Eyes: No Symptoms Ears, Nose, & Throat: No Symptoms Respiratory: No Symptoms Cardiac: Chest Pain Abdominal/Gastrointestinal: Abdominal Pain, Nausea, Vomiting, Hematemesis Genitourinary Symptoms: No Symptoms Musculoskeletal: No Symptoms Skin: No Symptoms Neurological: Dizziness Psychological: No Symptoms Endocrine: No Symptoms Hematologic/Lymphatic: Anemia Immunological/Allergic: No Symptoms - Past Medical History Pertinent Past Medical History: Yes Neurological History: No Pertinent History ENT History: Cataracts Cardiac History: High Cholesterol, Hypertension Respiratory History: No Pertinent History Endocrine Medical History: Diabetes Type II, Liver Disease Musculoskeletal History: Arthritis, Fibromyalgia GI Medical History: Gallbladder Disease History: No Pertinent History Psycho-Social History: Depression Female Reproductive Disorders: No Pertinent History Other Medical History: fibro, - Past Surgical History Past Surgical History: Yes Neuro Surgical History: No Pertinent History Cardiac: No Pertinent History Respiratory: No Pertinent History Gastrointestinal: Cholecystectomy Genitourinary: No Pertinent History Musculoskeletal: Orthopedic Surgery Female Surgical History: Hysterectomy, Tubal Ligation Other Surgical History: knee, heel spur,colonoscopy Significant Family History: no pertinent family hx - Social History Smoking Status: Never smoker Exposure to second hand smoke: Yes Drug Use: none Patient Lives Alone: No - Nursing Vital Signs Nursing Vital Signs: Initial Vital Signs Temperature 96.9 F 09/21/23 16:39 Pulse Rate 75 09/21/23 16:39 Respiratory Rate 17 09/21/23 16:39 Blood Pressure 106/60 09/21/23 16:39 O2 Sat by Pulse Oximetry 95 09/21/23 16:39 Pain Scale Pain Intensity 0 - Physical Exam General Appearance: no apparent distress, alert Eye Exam: PERRL/EOMI, pale conjunctivae Ears, Nose, Throat Exam: other (Blood around corners of her mouth and in oropharynx) Neck Exam: normal inspection, supple, full range of motion Respiratory Exam: normal breath sounds, lungs clear Cardiovascular Exam: regular rate/rhythm, normal heart sounds Gastrointestinal/Abdomen Exam: soft, normal bowel sounds, tenderness (Epigastric/right upper quadrant with no guarding or rebound) Back Exam: normal inspection Extremity Exam: normal inspection, normal range of motion Neurologic Exam: alert, oriented x 3, cooperative Skin Exam: pale SpO2 Interpretation: normal SpO2: 95 O2 Delivery: Room Air Ordered Tests: Medication Summary Discontinued Medications Generic Name Dose Route Start Last Admin Trade Name Freq PRN Reason Stop Dose Admin Sodium Chloride 1,000 mls @ 999 mls/hr 09/21/23 16:35 09/21/23 18:44 Sodium Chloride 0.9% 1000 Ml IV 09/21/23 17:35 Infused .Q1H1M STA Infusion Pantoprazole Sodium 80 mg/ 500 mls @ 50 mls/hr 09/21/23 16:45 09/21/23 17:22 Sodium Chloride IV 10/21/23 16:44 50 mls/hr .Q10H PADMINI 50 mls/hr Administration Sodium Chloride Confirm 09/21/23 17:11 Sodium Chloride 0.9% 1000 Ml Administered 09/21/23 17:12 Dose 1,000 mls @ ud .ROUTE .STK-MED ONE Sodium Chloride Confirm 09/21/23 17:11 Sodium Chloride 0.9% 500 Ml Administered 09/21/23 17:12 Dose 500 mls @ ud IV .STK-MED ONE Sodium Chloride Confirm 09/21/23 18:15 Sodium Chloride 0.9% 250 Ml Administered 09/21/23 18:16 Dose 250 mls @ ud IV .STK-MED ONE Ceftriaxone Sodium 2 gm in 100 mls @ 200 mls/hr 09/21/23 18:48 09/21/23 19:23 Rocephin 2 Gm/100 Ml Nacl IV 09/21/23 19:17 Infused STAT ONE Infusion Ceftriaxone Sodium Confirm 09/21/23 18:51 Rocephin 2 Gm/100 Ml Nacl Administered 09/21/23 18:52 Dose 2 gm in 100 mls @ ud IV .STK-MED ONE Octreotide Acetate 50 mcg 09/21/23 16:37 09/21/23 17:31 Octreotide Acetate 50 Mcg/Ml Ampul IV 09/21/23 16:38 50 mcg ONCE STA Administration Octreotide Acetate 50 mcg 09/21/23 17:30 Octreotide Acetate 50 Mcg/Ml Ampul IV 10/21/23 17:29 Q1-2H PADMINI Ondansetron HCl Confirm 09/21/23 17:35 Ondansetron Hcl 4 Mg/2 Ml Vial Administered 09/21/23 17:36 Dose 4 mg .ROUTE .STK-MED ONE Ondansetron HCl 4 mg 09/21/23 17:52 09/21/23 17:53 Ondansetron Hcl 4 Mg/2 Ml Vial IV 09/21/23 17:53 4 mg STAT ONE Administration Pantoprazole Sodium 80 mg 09/21/23 16:35 09/21/23 17:22 Pantoprazole 40 Mg Vial IV 09/21/23 16:36 80 mg STAT ONE Administration Pantoprazole Sodium Confirm 09/21/23 17:11 Pantoprazole 40 Mg Vial Administered 09/21/23 17:12 Dose 160 mg IV .K-MED ONE Lab/Rad Data: Laboratory Result Diagrams 09/21/23 16:37 09/21/23 16:37 Laboratory Results 09/21/23 09/21/23 09/21/23 Range/Units 16:50 16:44 16:43 WBC (4.0-10.5) x10^3/uL RBC (4.1-5.4) x10^6/uL Hgb (12.0-16.0) g/dL Hct (35-47) % MCV (78-100) fL MCH (26-32) pg MCHC (32-36) g/dL RDW (11.5-14.0) % Plt Count (150-450) x10^3/uL MPV (7.5-11.0) fL Gran % (36.0-66.0) % Immature Gran % (Auto) (0.00-0.4) % Nucleat RBC Rel Count (0.00-0.1) % Eos # (Auto) (0-0.5) x10^3/uL Immature Gran # (Auto) (0.00-0.03) x10^3u/L Absolute Lymphs (auto) (1.0-4.6) x10^3/uL Absolute Monos (auto) (0.0-1.3) x10^3/uL Absolute Nucleated RBC (0.00-0.01) x10^3u/L Lymphocytes % (24.0-44.0) % Monocytes % (0.0-12.0) % Eosinophils % (0.00-5.0) % Basophils % (0.0-0.4) % Absolute Granulocytes (1.4-6.9) x10^3/uL Basophils # (0-0.4) x10^3/uL PT (9.4-12.5) SECONDS INR (0.8-3.0) Sodium (135-145) mmol/L Potassium (3.5-5.1) mmol/L Chloride (98-107) mmol/L Carbon Dioxide (22-30) mmol/L Anion Gap (5-15) MEQ/L BUN (7-17) mg/dL Creatinine (0.52-1.04) mg/dL Estimated GFR ML/MIN Glucose (74-106) mg/dL Lactic Acid 3.2 H (0.4-2.0) Calcium (8.4-10.2) mg/dL Total Bilirubin (0.2-1.3) mg/dL AST (14-36) U/L ALT (0-35) U/L Alkaline Phosphatase (38-126) U/L Serum Total Protein (6.3-8.2) g/dL Albumin (3.5-5.0) g/dL Lipase (23-300) U/L Urine Color Yellow (Yellow) Urine Appearance Clear (Clear) Urine pH 7.0 (4.6-8.0) Ur Specific Procious 1.010 (1.005-1.030) Urine Protein Negative (Negative) Urine Glucose (UA) Negative (Negative) mg/dL Urine Ketones Negative (Negative) Urine Blood Negative (Negative) Urine Nitrite Positive A (Negative) Urine Bilirubin Negative (Negative) Urine Urobilinogen 0.2 (0.2) mg/dL Ur Leukocyte Esterase Negative (Negative) U Hyaline Cast (Auto) NONE SEEN (0-2) /LPF Urine Microscopic RBC 0-2 (0-5) /HPF Urine Microscopic WBC 0-2 (0-5) /HPF Ur Epithelial Cells None Seen (None Seen) /HPF Urine Bacteria Many A (None Seen) /HPF Urine Culture Reflexed ORDERED SEPARATELY (NO) ABO Group B Rh Factor NEGATIVE Antibody Screen NEGATIVE (NEGATIVE) Crossmatch COMPATIBLE (COMPATIBLE) 09/21/23 09/21/23 09/21/23 Range/Units 16:37 16:37 16:37 WBC (4.0-10.5) x10^3/uL RBC (4.1-5.4) x10^6/uL Hgb (12.0-16.0) g/dL Hct (35-47) % MCV (78-100) fL MCH (26-32) pg MCHC (32-36) g/dL RDW (11.5-14.0) % Plt Count (150-450) x10^3/uL MPV (7.5-11.0) fL Gran % (36.0-66.0) % Immature Gran % (Auto) (0.00-0.4) % Nucleat RBC Rel Count (0.00-0.1) % Eos # (Auto) (0-0.5) x10^3/uL Immature Gran # (Auto) (0.00-0.03) x10^3u/L Absolute Lymphs (auto) (1.0-4.6) x10^3/uL Absolute Monos (auto) (0.0-1.3) x10^3/uL Absolute Nucleated RBC (0.00-0.01) x10^3u/L Lymphocytes % (24.0-44.0) % Monocytes % (0.0-12.0) % Eosinophils % (0.00-5.0) % Basophils % (0.0-0.4) % Absolute Granulocytes (1.4-6.9) x10^3/uL Basophils # (0-0.4) x10^3/uL PT 13.1 H (9.4-12.5) SECONDS INR 1.22 (0.8-3.0) Sodium 139 (135-145) mmol/L Potassium 3.5 (3.5-5.1) mmol/L Chloride 110 H (98-107) mmol/L Carbon Dioxide 22 (22-30) mmol/L Anion Gap 10.9 (5-15) MEQ/L BUN 15 (7-17) mg/dL Creatinine 0.65 (0.52-1.04) mg/dL Estimated GFR 95.3 ML/MIN Glucose 130 H (74-106) mg/dL Lactic Acid (0.4-2.0) Calcium 9.1 (8.4-10.2) mg/dL Total Bilirubin 0.80 (0.2-1.3) mg/dL AST 47 H (14-36) U/L ALT 36 H (0-35) U/L Alkaline Phosphatase 132 H (38-126) U/L Serum Total Protein 5.8 L (6.3-8.2) g/dL Albumin 3.1 L (3.5-5.0) g/dL Lipase 204 (23-300) U/L Urine Color (Yellow) Urine Appearance (Clear) Urine pH (4.6-8.0) Ur Specific Procious (1.005-1.030) Urine Protein (Negative) Urine Glucose (UA) (Negative) mg/dL Urine Ketones (Negative) Urine Blood (Negative) Urine Nitrite (Negative) Urine Bilirubin (Negative) Urine Urobilinogen (0.2) mg/dL Ur Leukocyte Esterase (Negative) U Hyaline Cast (Auto) (0-2) /LPF Urine Microscopic RBC (0-5) /HPF Urine Microscopic WBC (0-5) /HPF Ur Epithelial Cells (None Seen) /HPF Urine Bacteria (None Seen) /HPF Urine Culture Reflexed (NO) ABO Group Rh Factor Antibody Screen (NEGATIVE) Crossmatch COMPATIBLE (COMPATIBLE) 09/21/23 Range/Units 16:37 WBC 5.9 (4.0-10.5) x10^3/uL RBC 3.14 L (4.1-5.4) x10^6/uL Hgb 9.7 L (12.0-16.0) g/dL Hct 28.7 L (35-47) % MCV 91.4 (78-100) fL MCH 30.9 (26-32) pg MCHC 33.8 (32-36) g/dL RDW 13.9 (11.5-14.0) % Plt Count 101 L (150-450) x10^3/uL MPV 11.8 H (7.5-11.0) fL Gran % 73.5 H (36.0-66.0) % Immature Gran % (Auto) 0.5 H (0.00-0.4) % Nucleat RBC Rel Count 0.0 (0.00-0.1) % Eos # (Auto) 0.14 (0-0.5) x10^3/uL Immature Gran # (Auto) 0.03 (0.00-0.03) x10^3u/L Absolute Lymphs (auto) 0.88 L (1.0-4.6) x10^3/uL Absolute Monos (auto) 0.49 (0.0-1.3) x10^3/uL Absolute Nucleated RBC 0.00 (0.00-0.01) x10^3u/L Lymphocytes % 14.8 L (24.0-44.0) % Monocytes % 8.3 (0.0-12.0) % Eosinophils % 2.4 (0.00-5.0) % Basophils % 0.5 (0.0-0.4) % Absolute Granulocytes 4.36 (1.4-6.9) x10^3/uL Basophils # 0.03 (0-0.4) x10^3/uL PT (9.4-12.5) SECONDS INR (0.8-3.0) Sodium (135-145) mmol/L Potassium (3.5-5.1) mmol/L Chloride (98-107) mmol/L Carbon Dioxide (22-30) mmol/L Anion Gap (5-15) MEQ/L BUN (7-17) mg/dL Creatinine (0.52-1.04) mg/dL Estimated GFR ML/MIN Glucose (74-106) mg/dL Lactic Acid (0.4-2.0) Calcium (8.4-10.2) mg/dL Total Bilirubin (0.2-1.3) mg/dL AST (14-36) U/L ALT (0-35) U/L Alkaline Phosphatase (38-126) U/L Serum Total Protein (6.3-8.2) g/dL Albumin (3.5-5.0) g/dL Lipase (23-300) U/L Urine Color (Yellow) Urine Appearance (Clear) Urine pH (4.6-8.0) Ur Specific Procious (1.005-1.030) Urine Protein (Negative) Urine Glucose (UA) (Negative) mg/dL Urine Ketones (Negative) Urine Blood (Negative) Urine Nitrite (Negative) Urine Bilirubin (Negative) Urine Urobilinogen (0.2) mg/dL Ur Leukocyte Esterase (Negative) U Hyaline Cast (Auto) (0-2) /LPF Urine Microscopic RBC (0-5) /HPF Urine Microscopic WBC (0-5) /HPF Ur Epithelial Cells (None Seen) /HPF Urine Bacteria (None Seen) /HPF Urine Culture Reflexed (NO) ABO Group Rh Factor Antibody Screen (NEGATIVE) Crossmatch (COMPATIBLE) - Progress Progress: re-examined Progress Note: 09/21/23 18:21 67-year-old is evaluated in the ER for upper GI bleed. Patient was borderline hypotensive, given fluid bolus. Discussed with patient, type crossmatch and she agreed with transfusion. Went over risk and benefits which she understands and agrees. She is given loading dose of Protonix and octreotide and started on both IV infusions/drips. Workup showed normal white count, hemoglobin of 9.7 and a platelet of 101. Patient has a INR 1.2 and liver enzymes barely elevated from normal with normal bilirubin. Lactate of 3.2. While in the ER patient had another episode of bright red blood emesis. She would be started on blood transfusions. I believe 9.7 hemoglobin is falsely normal and with amount of bleeding she is having she could drop quickly. I have obtained CT abdomen pelvis and chest which is currently pending. I believe patient needs to be transferred to higher level of care with GI services. I have called [facility] and no GI services are available. I have called [facility], discussed with Dr. Cindy Curry and Dr. Starr hospitalist/GI and reviewed history, workup, agreed with transfer. They do not have IR available. Per GI I have discussed with patient that if she goes to [facility] and if her case is beyond the exposure days at [facility] patient might be transfer to a tertiary care facility. Patient agrees with transfer to [facility]. 09/21/23 18:25 Discussed with : Other Counseled pt/family regarding: lab results, diagnosis, rad results Medical Desision Making - Discussion of managment Care discussed with:: specialist Reviewed:: Test results Agreed on:: Treatment plan Will see patient: in hospital - Diagnostic Testing Diagnostic test were ordered, analyzed, and reviewed by me: Yes Radiological Interpretation: Reviewed by me - Risk of complications The pt has a high risk of morbidity or mortality based on: Need for major surgery in patient with known risk factors, Decision regarding hospitilization or escalation of hosp level of care - Departure Departure Disposition: Transfer Clinical Impression: Upper GI bleed, Weakness, Esophageal varices with bleeding Condition: Fair Critical Care Time: Yes Critical Care Time(excluding separately billable procedures): Critical 30-74 mins Referrals: DOCTOR,NO FAMILY [Primary Care Provider] - Follow up/PCP as directed
[2023-09-21 17:36] LABS: ABO TYPING B; Antibody Screen NEGATIVE (NEGATIVE); RH TYPING NEGATIVE
[2023-09-21 17:39] LABS: CROSS MATCH (PRBC) COMPATIBLE (COMPATIBLE)
[2023-09-21] MEDS: Zofran 4 MG/2 ML VIAL IV ONE (17:53)
[2023-09-21] MEDS ORDERED: Sodium Chloride 0.9% 250 ML 250 ML IV ONE (18:15)
[2023-09-21] MEDS ORDERED: ROCEPHIN 2 GM/100 ML NACL 2 GM/100 ML IVPB IV ONE (18:51)
[2023-09-21] MEDS: ROCEPHIN 2 GM/100 ML NACL 2 GM/100 ML IVPB IV ONE (18:53)
[2023-09-21 19:15] VITALS: BP 135/60; PULSE 78; RESP 13
--- NOTE | 2023-09-22 08:39 | XRAY ---
Indication: Vomiting. Abdominal pain. Multiple contiguous axial images obtained through the chest using 80 cc Isovue 370 contrast. Comparison: April 07, 2022. Lungs demonstrate worsening mild bilateral dependent atelectasis with now minimal bibasilar subsegmental atelectasis/scarring. No pulmonary mass/nodule, infiltrate, effusion, or pneumothorax. Heart not enlarged again with scattered coronary calcifications. Aorta again mildly arteriosclerotic without aneurysm/dissection. Enlarging small hiatal hernia with now partial intrathoracic stomach. Bony thorax intact again with osteopenia and minimal degenerative changes throughout the spine. CT abdomen/pelvis reported separately. Impression: 1. Again scattered atelectasis/scarring, arteriosclerotic disease, hiatal hernia, and chronic bony findings. 2. Remaining CT chest with contrast exam continues to be negative.
--- NOTE | 2023-09-22 08:45 | XRAY ---
Indication: Hematemesis. Abdominal pain. Multiple contiguous axial images obtained through the abdomen and pelvis using 80 cc Isovue 370 contrast. Comparison: August 03, 2022 CT chest reported separate. Stomach is now mildly distended with food/fluid. Noncontrasted stomach and bowel loops appear nonobstructed. Several jejunal bowel loops are now mildly fluid distended with wall thickening/enhancement favoring enteritis. Appendix not visualized. Rectum demonstrates new mild fecal impaction. Mid abdomen demonstrates new centimeter/subcentimeter mesenteric nodes with minimal stranding favoring adenitis. Again cirrhotic liver without ascites, 18.3 cm splenomegaly, varices centered around GE junction, and prominent main portal vein. Again cholecystectomy and hysterectomy. A few tiny bilateral renal cortical cysts not seen on previous noncontrast exam. Near empty urinary bladder demonstrates new Tony balloon catheter in situ. No free fluid/air. Remaining pancreas, adrenal glands, kidneys, ureters, and bladder are unremarkable. Again mild scattered aortoiliac calcifications pain no AAA or pathologic retroperitoneal lymphadenopathy. Osseous structures intact again with osteopenia, minimal multilevel degenerative spondylosis, and minimal grade 1 L4 listhesis. Impression: 1. CT findings favoring mild enteritis. No complications. 2. New mesenteric adenitis and mild rectal fecal impaction. 3. Chronic findings including cirrhotic liver, splenomegaly, varices centered around GE junction, prominent portal vein, bilateral renal cysts, arteriosclerotic disease, and chronic bony findings.
[2023-09-22 23:31] VITALS: O2SAT 95
== END 2023-09-21 20:05 | disposition short-term general hospital (02) ==
LOC: ED 16:27
DX: I85.01 Esophageal varices with bleeding (principal); R53.1 Weakness; K92.0 Hematemesis; R10.10 Upper abdominal pain, unspecified; E78.5 Hyperlipidemia, unspecified; I10 Essential (primary) hypertension; E11.9 Type 2 diabetes mellitus without complications; Z79.84 Long term (current) use of oral hypoglycemic drugs; Z79.891 Long term (current) use of opiate analgesic; Z79.899 Other long term (current) drug therapy
CPT/HCPCS: 36000; 36415; 36430; 51702; 71260; 74177; 80053; 81001; 83605; 83690; 85025; 85610; 86850; 86900; 86901; 86922; 87040; 87077; 87086; 87186; 96374; 96375; 99285; 99291; P9016; J0696; J2354; J2405

== ENCOUNTER 2024-03-15 17:55 | Emergency (ER) | payer MEDICARE ==
--- NOTE | 2024-03-15 18:04 | ERPHSYRPT ---
- History of Present Illness Time Seen by Provider: 03/15/24 18:04 Historian: patient, family Exam Limitations: no limitations Physician History: This is an obese 68-year-old white female patient who arrives by private vehicle secondary to abdominal pain that came on suddenly at 2:00 this morning, 03/15/2024. The pain is described as sharp and it was first in the left lower quadrant followed by migration to the right lower quadrant and then to the left upper quadrant. Patient states that her abdomen hurts to cough. Patient has history of hyperlipidemia, depression, anxiety, hypertension, diabetes, liver disease, arthritis and fibromyalgia. Patient has no chest pain and no shortness of breath. Timing/Duration: today Quality: sharpness, stabbing Abdominal Pain Onset Location: LUQ, RLQ, LLQ Severity of Pain-Max: moderate Severity of Pain-Current: moderate Modifying Factors: Improves With: nothing Associated Symptoms: denies symptoms Previous symptoms: no prior history, no recent treatment Allergies/Adverse Reactions: Penicillins Allergy (Unknown, Verified 09/21/23 16:54) Home Medications: Atorvastatin Calcium 20 mg PO DAILY 04/20/20 [History] Fluoxetine HCl 40 mg PO DAILY 04/20/20 [History] Tramadol HCl 50 mg [Ultram 50 mg] 50 mg PO TIDPRN PRN 04/20/20 [History] Aripiprazole [Abilify] 2 mg PO HS 01/25/22 [History] Potassium Chloride 20 meq PO DAILY 01/25/22 [History] Multivitamin/Iron/Folic Acid [Centrum Women Tablet] 1 tab PO UD 03/01/22 [History] ALPRAZolam 0.25 MG [xanAX 0.25 MG] 0.25 mg PO UD PRN 09/21/23 [History] Gabapentin [Neurontin ] 100 mg PO DAILY 09/21/23 [History] Tizanidine HCl [Zanaflex] 2 - 4 mg PO DAILY 09/21/23 [History] Carvedilol 3.125 mg [Coreg 3.125 MG] 3.125 mg PO BID 03/15/24 [History] Chlorthalidone 50 mg PO DAILY 03/15/24 [History] Sitagliptin Phosphate [Januvia] 100 mg PO DAILY 03/15/24 [History] Hx Tetanus, Diphtheria Vaccination/Date Given: Yes Hx Influenza Vaccination/Date Given: Yes Hx Pneumococcal Vaccination/Date Given: Yes Travel Risk - Emerging Infectious Disease Are you exhibiting symptoms associated with any current EIDs: No - Review of Systems Constitutional: No Symptoms Eyes: No Symptoms Ears, Nose, & Throat: No Symptoms Respiratory: No Symptoms Cardiac: No Symptoms Abdominal/Gastrointestinal: Abdominal Pain, Appetite Changes Genitourinary Symptoms: No Symptoms Musculoskeletal: No Symptoms Skin: No Symptoms Neurological: No Symptoms Psychological: No Symptoms Endocrine: No Symptoms Hematologic/Lymphatic: No Symptoms Immunological/Allergic: No Symptoms All Other Systems: Reviewed and Negative - Past Medical History Pertinent Past Medical History: Yes Neurological History: No Pertinent History ENT History: Cataracts Cardiac History: High Cholesterol, Hypertension Respiratory History: No Pertinent History Endocrine Medical History: Diabetes Type II, Liver Disease Musculoskeletal History: Arthritis, Fibromyalgia GI Medical History: Gallbladder Disease History: No Pertinent History Psycho-Social History: Depression Female Reproductive Disorders: No Pertinent History Other Medical History: fibro, - Past Surgical History Past Surgical History: Yes Neuro Surgical History: No Pertinent History Cardiac: No Pertinent History Respiratory: No Pertinent History Gastrointestinal: Cholecystectomy Genitourinary: No Pertinent History Musculoskeletal: Orthopedic Surgery Female Surgical History: Hysterectomy, Tubal Ligation Other Surgical History: knee, heel spur,colonoscopy Significant Family History: no pertinent family hx - Social History Smoking Status: Never smoker Exposure to second hand smoke: Yes Drug Use: none Patient Lives Alone: No - Social Determinants of Health Will the patient participate in the screening: Yes Do you worry about a steady place to live?: No In the past 12 months,have you had to go without utilities?: No Transportation Issues: No Has anyone in your support network made you feel unsafe?: No Have you or anyone in your house had to go without enough: No - Nursing Vital Signs Nursing Vital Signs: Initial Vital Signs Temperature 97.3 F 03/15/24 18:09 Pulse Rate 78 03/15/24 18:09 Respiratory Rate 22 03/15/24 18:09 Blood Pressure 130/68 03/15/24 18:09 O2 Sat by Pulse Oximetry 98 03/15/24 18:09 Pain Scale Pain Intensity 7 - Physical Exam General Appearance: mild distress, alert, anxiety, obese Eye Exam: PERRL/EOMI, eyes nml inspection Ears, Nose, Throat Exam: normal ENT inspection, moist mucous membranes Neck Exam: normal inspection, non-tender, supple, full range of motion Respiratory Exam: normal breath sounds, lungs clear, airway intact, No chest tenderness, No respiratory distress Cardiovascular Exam: regular rate/rhythm, normal heart sounds, normal peripheral pulses Gastrointestinal/Abdomen Exam: soft, normal bowel sounds, tenderness (Mild diffuse to palpation), guarding (Mild diffuse to palpation), No rebound Pelvic Exam: not done Rectal Exam: not done Back Exam: normal inspection, normal range of motion, No CVA tenderness, No vertebral tenderness Extremity Exam: normal inspection, normal range of motion, pelvis stable Neurologic Exam: alert, oriented x 3, cooperative, cargoman II-XII nml as tested, nml cerebellar function, nml station & gait, sensation nml Skin Exam: normal color, warm, dry Lymphatic Exam: No adenopathy SpO2 Interpretation: normal O2 Delivery: Room Air - Course Nursing assessment & vital signs reviewed: Yes Ordered Tests: Active Orders 24 hr Category Date Time Status IV Insertion STAT Care 03/15/24 18:38 Active ABDOMEN AND PELVIS W/0 CONTRAS [CT] Stat Exams 03/15/24 18:38 Taken AMYLASE Stat Lab 03/15/24 18:30 Completed CBC W DIFF Stat Lab 03/15/24 18:30 Completed CMP Stat Lab 03/15/24 18:30 Completed LIPASE Stat Lab 03/15/24 18:30 Completed Manual Differential NC Stat Lab 03/15/24 18:30 Completed UA W/RFX UR CULTURE Stat Lab 03/15/24 19:59 Completed Medication Summary Generic Name Dose Route Start Last Admin Trade Name Freq PRN Reason Stop Dose Admin Sodium Chloride 1,000 mls @ 100 mls/hr 03/15/24 18:45 03/15/24 19:27 Sodium Chloride 0.9% 1000 Ml IV 04/14/24 18:44 100 mls/hr .Q10H PADMINI Administration Discontinued Medications Generic Name Dose Route Start Last Admin Trade Name Freq PRN Reason Stop Dose Admin Hydromorphone HCl 0.5 mg 03/15/24 18:38 03/15/24 19:32 Hydromorphone 1 Mg/1ml Inj IV 03/15/24 18:39 0.5 mg STAT ONE Administration Hydromorphone HCl Confirm 03/15/24 19:23 Hydromorphone 1 Mg/1ml Inj Administered 03/15/24 19:24 Dose 1 mg .ROUTE .STK-MED ONE Ondansetron HCl 4 mg 03/15/24 18:38 03/15/24 19:30 Ondansetron Hcl 4 Mg/2 Ml Vial IV 03/15/24 18:39 4 mg STAT ONE Administration Ondansetron HCl Confirm 03/15/24 19:22 Ondansetron Hcl 4 Mg/2 Ml Vial Administered 03/15/24 19:23 Dose 4 mg .ROUTE .STK-MED ONE Lab/Rad Data: Laboratory Result Diagrams 03/15/24 18:30 03/15/24 18:30 Laboratory Results 03/15/24 03/15/24 03/15/24 Range/Units 19:59 18:30 18:30 WBC 2.2 L (3.98-10.04) x10^3/uL RBC 3.55 L (3.93-5.22) x10^6/uL Hgb 11.3 (11.2-15.7) g/dL Hct 32.9 L (34.1-44.9) % MCV 92.7 (79.4-94.8) fL MCH 31.8 (25.6-32.2) pg MCHC 34.3 (32.2-35.5) g/dL RDW 15.0 H (11.7-14.4) % Plt Count 64 L (182-369) x10^3/uL MPV 10.1 (9.4-12.3) fL Segmented Neutrophils 68 (34.0-71.1) % Lymphocytes (Manual) 20 (19.3-51.7) % Monocytes (Manual) 6 (4.7-12.5) % Eosinophils (Manual) 6 H (0.7-5.8) % Hypochromia 1+ Platelet Estimate DECREASED (NORMAL) RBC Morphology ABNORMAL Anisocytosis 1+ Sodium 139 (135-145) mmol/L Potassium 3.8 (3.5-5.1) mmol/L Chloride 107 (98-107) mmol/L Carbon Dioxide 26 (22-30) mmol/L Anion Gap 10.9 (5-15) MEQ/L BUN 16 (7-17) mg/dL Creatinine 0.54 (0.52-1.04) mg/dL Estimated GFR 99.0 ML/MIN Glucose 98 (74-106) mg/dL Calcium 9.9 (8.4-10.2) mg/dL Total Bilirubin 0.90 (0.2-1.3) mg/dL AST 54 H (14-36) U/L ALT 47 H (0-35) U/L Alkaline Phosphatase 169 H (38-126) U/L Serum Total Protein 6.9 (6.3-8.2) g/dL Albumin 4.0 (3.5-5.0) g/dL Amylase 53 (30-110) U/L Lipase 180 (23-300) U/L Urine Color Yellow (Yellow) Urine Appearance Clear (Clear) Urine pH 7.5 (4.6-8.0) Ur Specific [place] 1.015 (1.005-1.030) Urine Protein Negative (Negative) Urine Glucose (UA) Negative (Negative) mg/dL Urine Ketones Negative (Negative) Urine Blood Negative (Negative) Urine Nitrite Negative (Negative) Urine Bilirubin Negative (Negative) Urine Urobilinogen 1.0 A (0.2) mg/dL Ur Leukocyte Esterase Trace A (Negative) U Hyaline Cast (Auto) NONE SEEN (0-2) /LPF Urine Microscopic RBC 0-2 (0-5) /HPF Urine Microscopic WBC 3-5 (0-5) /HPF Ur Epithelial Cells None Seen (None Seen) /HPF Urine Bacteria None Seen (None Seen) /HPF Urine Culture Reflexed NO (NO) - Progress Progress: improved, pain not gone completely Progress Note: 03/15/24 19:20 My medical decision making and the assignment of moderate complexity to this patient's medical issue today is based on review of the patient's past medical history, review the patient's medication list, review the patient drug allergy list, history present illness and physical findings on examination. The workup in this patient includes placement of intravenous line, infusion normal saline solution, infusion of Dilaudid, infusion of Zofran, CBC, CMP, amylase, lipase, urinalysis and CT scan of the abdomen pelvis without contrast. Differential diagnosis includes but is not limited to pancreatitis, colitis, diverticulitis, bowel obstruction 03/15/24 20:34 Patient has chronic leukopenia and chronic thrombocytopenia. I interpreted the patient's laboratory data results today. Her white count is 2.2 which is lower than other dates that have checked her white count. She also has a platelet count of 64 which also is lower than other dates. She has no spontaneous bleeding. The CT scan of the abdomen pelvis without contrast was compared to the similar study dated 09/21/2023. There is chronic findings of a small hiatal hernia, a cirrhotic liver with tiny perihepatic fluid, 18 cm splenomegaly, GE junction va rices, multilevel degenerative spondylosis. No acute or new findings. 03/15/24 21:43 I had a long discussion with the patient and her spouse and I went over in detail the patient's laboratory workup as well as CT scan of the abdomen pelvis without contrast findings. Together, we decided that the patient was stable enough to be discharged to home. They are reliable and they are going to call their primary care provider and curtain mender out of [facility] for [place] in the morning on 03/16/2024. Again the patient is hemodynamically stable, her pain has improved and she has no history of hematemesis or bright red blood per rectum or dark tarry stools.. She will have to take home tablets of [place] 5/325. I am aware that she does have some degree of cirrhosis. However transaminases are very mildly elevated and she is only going to be receiving 2 tablets that she can take 1 orally every 6 hours if needed beginning at midnight tonight. Counseled pt/family regarding: lab results, diagnosis, need for follow-up, rad results Medical Desision Making - Independent Historian Additional History obtained from: Spouse - Diagnostic Testing Diagnostic test were ordered, analyzed, and reviewed by me: Yes Radiological Interpretation: Reviewed by me, Teleradiologist Report - Risk of complications Low Risk: Low risk of morbidity from additional dx testing or treatment - Departure Departure Disposition: Home Clinical Impression: Abdominal pain, Leukopenia, Thrombocytopenia, Elevated liver transaminase level, Esophageal varices in cirrhosis Condition: Stable Critical Care Time: No Referrals: DOCTOR,NO FAMILY [Primary Care Provider] - Follow up/PCP as directed Additional Instructions: Call both your primary care provider and curtain mender tomorrow morning at 8 AM on 03/16/2024 to make arrangement for follow-up appointment to be seen in the next 2 to 3 days and for further instructions and management.
[2024-03-15 18:18] VITALS: TEMP 97.3
[2024-03-15 18:48] LABS: Hematocrit 32.9 % (34.1-44.9); Hemoglobin 11.3 g/dL (11.2-15.7); Mean Cell Volume 92.7 fL (79.4-94.8); Mean Corpuscular Hemoglobin 31.8 pg (25.6-32.2); Mean Corpuscular Hgb Concent. 34.3 g/dL (32.2-35.5); Mean Platelet Volume 10.1 fL (9.4-12.3); Platelet Count 64 x10^3/uL (182-369); Red Blood Count 3.55 x10^6/uL (3.93-5.22); White Blood Count 2.2 x10^3/uL (3.98-10.04)
[2024-03-15 19:04] LABS: ANION GAP 10.9 MEQ/L (5-15); BILIRUBIN,TOTAL 0.9 mg/dL (0.2-1.3); Calcium 9.9 mg/dL (8.4-10.2); Creatinine 1 0.54 mg/dL (0.52-1.04); Potassium 3.8 mmol/L (3.5-5.1); Total Protein 6.9 g/dL (6.3-8.2)
[2024-03-15] MEDS ORDERED: Zofran 4 MG/2 ML VIAL ONE (19:22)
[2024-03-15] MEDS ORDERED: Hydromorphone 1 mg/ml Injection ONE (19:23)
[2024-03-15] MEDS ORDERED: Sodium Chloride 0.9% 1000 ML 1,000 ML ONE (19:24)
[2024-03-15] MEDS: Sodium Chloride 0.9% 1000 ML 1,000 ML IV SCH (19:27)
[2024-03-15] MEDS: Zofran 4 MG/2 ML VIAL IV ONE (19:30)
[2024-03-15] MEDS: Hydromorphone 1 mg/ml Injection IV ONE (19:32)
[2024-03-15 20:11] LABS: Appearance Clear (Clear); Bacteria None Seen /HPF (None Seen); Bilirubin Negative (Negative); Blood Negative (Negative); Epithelial Cells None Seen /HPF (None Seen); Glucose, Urine Negative (Negative); Hyaline Casts NONE SEEN /LPF (0-2); Ketones Negative (Negative); Leukocyte Esterase Trace (Negative); Nitrite Negative (Negative); Ph 7.5 (4.6-8.0); Protein,Urine Dip Negative (Negative); RBC 0-2 /HPF (0-5); Specific Gravity 1.015 (1.005-1.030)
[2024-03-15 20:26] LABS: Eosinophil 6 % (0.7-5.8); Lymphocytes 20 % (19.3-51.7); Monocyte 6 % (4.7-12.5); Neutrophils 68 % (34.0-71.1); Platelet Estimate DECREASED (NORMAL); Total Cells Counted 100
[2024-03-15 20:27] LABS: ANISOCYTOSIS 1+; Hypochromia 1+
[2024-03-15] MEDS ORDERED: NORCO 5/325 MG ONE (21:51)
[2024-03-15] MEDS: NORCO 5/325 MG PO ONE (21:54)
[2024-03-15 22:04] VITALS: BP 135/83; PULSE 74; RESP 11; O2SAT 94
--- NOTE | 2024-03-16 08:46 | XRAY ---
Indication: Abdominal pain. Multiple contiguous axial images obtained through the abdomen and pelvis without contrast. Comparison: September 21, 2023 Lung bases again demonstrates minimal bibasilar subsegmental atelectasis/scarring. No infiltrate or effusion. Heart not enlarged. Stable small hiatal hernia with previous CT proving gastroesophageal junction varices. Noncontrasted stomach and bowel loops appear nonobstructed. Appendix not visualized. Again cirrhotic liver with now tiny perihepatic fluid anteriorly. Again 18 cm splenomegaly, prominent portal vein, splenorenal varices, tiny left mid renal hyperdense cyst, cholecystectomy, and hysterectomy. No free air. Remaining pancreas, adrenal glands, kidneys, ureters, and bladder are unremarkable for noncontrast exam. There remains mild scattered aortoiliac calcifications without AAA. Osseous structures intact again with mild multilevel degenerative spondylosis and grade 1 L4 listhesis. Impression: 1. Again cirrhotic liver with now tiny perihepatic fluid. 2. There CT findings favoring portal hypertension including splenomegaly, prominent portal vein, gastroesophageal junction varices, splenorenal varices, and prominent portal vein. 3. Chronic findings including left renal hyperdense cyst, hiatal hernia, arteriosclerotic disease, and chronic bony findings. 4. No acute findings on this noncontrast exam.
== END 2024-03-15 22:11 | disposition home or self-care (01) ==
LOC: ED 17:55
DX: K74.60 Unspecified cirrhosis of liver (principal); I85.10 Secondary esophageal varices without bleeding; R10.84 Generalized abdominal pain; D72.819 Decreased white blood cell count, unspecified; D69.6 Thrombocytopenia, unspecified; R74.01 Elevation of levels of liver transaminase levels; E78.5 Hyperlipidemia, unspecified; I10 Essential (primary) hypertension; E11.9 Type 2 diabetes mellitus without complications; Z79.84 Long term (current) use of oral hypoglycemic drugs; Z79.899 Other long term (current) drug therapy
CPT/HCPCS: 36000; 36415; 74176; 80053; 81001; 82150; 83690; 85025; 96374; 99284; J1170; J2405; A9270-GY